=== PATIENT | female | born 1990 | race Caucasian/White ===

== ENCOUNTER 2016-11-03 11:12 | Emergency (ER) | payer MEDICAID ==
[2016-11-03 11:31] VITALS: RESP 14
--- NOTE | 2016-11-03 12:23 | EDPHY ---
H & P Stated Complaint: Peg tube non functional Time Seen by Provider: 11/03/16 11:21 HPI/ROS: CHIEF COMPLAINT: Malfunction of PEG tube HISTORY OF PRESENT ILLNESS: The patient is sent to the emergency department because her PEG tube is leaking. The patient is nonverbal secondary to her underlying neurologic condition. By report there is no history of vomiting, fever or abnormal vital signs. The patient is unable to provide additional history secondary to her chronic state. REVIEW OF SYSTEMS: A comprehensive 10 point review of systems is otherwise negative aside from elements mentioned in the history of present illness. Source: EMS, Old records - Personal History Current Tetanus/Diphtheria Vaccine: Yes Current Tetanus Diphtheria and Acellular Pertussis (TDAP): Yes - Medical/Surgical History Hx Asthma: No Hx Chronic Respiratory Disease: No Hx Diabetes: No Hx Cardiac Disease: No Hx Renal Disease: No Hx Cirrhosis: No Hx Alcoholism: No Hx HIV/AIDS: No Hx Splenectomy or Spleen Trauma: No Other PMH: bradycardia, retinitis pigmentosa, epilepsy with progressive neurodegenerative disorder, failure to thrive, blind (sees shadows only), anorexia with severe malnutrition and PEG tube, closed fx pelvis, severe depression without psychotic features - Social History Smoking Status: Never smoked - Physical Exam Exam: General Appearance: Deconditioned female, no acute distress Eyes: Pupils equal and round no pallor or injection ENT, Mouth: Mucous membranes moist Respiratory: There are no retractions, lungs are clear to auscultation Cardiovascular: Regular rate and rhythm Gastrointestinal: Abdomen is soft and nontender, no masses, bowel sounds normal , leaking PEG tube noted Neurological: Chronic weakness secondary to her neurologic condition Skin: Warm and dry, no rashes Musculoskeletal: Neck is supple nontender Extremities: symmetrical, full range of motion Constitutional: Initial Vital Signs Temperature (C) 36.6 C 11/03/16 11:23 Heart Rate 56 L 11/03/16 11:23 Respiratory Rate 14 11/03/16 11:23 Blood Pressure 101/49 L 11/03/16 11:23 O2 Sat (%) 95 11/03/16 11:23 O2 Delivery Mode Room Air Allergies/Adverse Reactions: lorazepam Allergy (Verified 11/03/16 11:22) Other-Enter Comments cantaloupe Allergy (Uncoded 11/03/16 11:22) Home Medications: Medication Instructions Recorded Bisacodyl [Dulcolax] 10 mg RC DAILY PRN 12/09/14 Magnesium Hydroxide [Milk of 30 ml TUBE DAILY PRN 06/17/14 Magnesia (*)] Sennosides/Docusate Sodium 2 tab TUBE BID 06/17/14 [Jadyn-Colace Tablet] Divalproex [Depakote Sprinkle 125 625 mg PO BID 09/10/14 MG (*)] Calcium Carbonate [Tums 500MG (*)] 500 mg PO BID 11/19/15 FLUoxetine [Prozac 10 MG (*)] 20 mg TUBE DAILY 11/19/15 Midazolam HCl/Pf [Midazolam 5 2 ml IM ONCE PRN 11/19/15 mg/ml Carpuject] Pregabalin [LYRICA] 100 mg TUBE BID 11/19/15 hydrOXYzine HCL 10 mg PO Q8 PRN 11/19/15 lamoTRIgine [Lamictal] 200 mg TUBE BID 11/19/15 Acetaminophen [Tylenol ES 500 mg 1,000 mg PO Q6 PRN 02/05/16 (*)] Lipase/Protease/Amylase [Creon 12 1 cap TUBE TIDMEAL 02/05/16 (*)] levOCARNitine [Biocarnitine Sf] 2 ml TUBE BID 02/05/16 Ergocalciferol [Vitamin D2 (*)] 50,000 unit PO SA@06/05/16 Herbals/Supplements -Info Only 1 ea PO DAILY 06/05/16 OLANZapine [Zyprexa] 15 mg PO HS 06/05/16 Sulfamethox/Tmp 800/160 mg 1 tab PO BID #14 tab 06/07/16 [Bactrim Ds] Medical Decision Making ED Course/Re-evaluation: Procedure Peg tube replacement Indication: Peg tube malfunction I replace the patient's 20 Cam[place]onian PEG tube with a brand new 20 Cam[place]onian PEG tube without complication. I was able to easily aspirate gastric contents following the procedure. Patient tolerated the procedure well. She will be discharged back to her residential facility. Departure - Departure Disposition: Home, Routine, Self-Care Clinical Impression: PEG tube malfunction Condition: Good Instructions: How to Use and Care for Your PEG Tube (ED) Additional Instructions: 1. Return to the emergency department for any malfunction of your PEG tube. Referrals: GAUTAM CAMACHO [Primary Care Provider] - As per Instructions
[2016-11-03 12:53] VITALS: BP 109/68; PULSE 74; TEMP 98.4; O2SAT 94
== END 2016-11-03 12:49 | disposition home or self-care (01) ==
LOC: EDUNIT#
DX: K94.23 Gastrostomy malfunction (principal)

== ENCOUNTER 2017-01-02 19:19 | Inpatient (IN) | payer MEDICAID ==
[2017-01-02] MEDS ORDERED: NS 1,000 ML IV ONE ×3 (19:41→22:40)
[2017-01-02] MEDS ORDERED: ACETAMINOPHEN 160 MG/5 ML UDCUP TUBE ONE (19:46)
[2017-01-02 19:54] LABS: % IMMATURE GRANULYOCYTES 1.1 % (0.0-1.1); ABSOLUTE IMMATURE GRANULOCYTES 0.13 10^3/uL (0.00-0.10); ADD DIFF? NO; ADD MORPH? NO; ADD SCAN? NO; ATYPICAL LYMPHOCYTE FLAG 0 (0-99); FRAGMENT RBC FLAG 0 (0-99); HEMATOCRIT 45.1 % (38.0-47.0); HEMOGLOBIN 14.8 g/dL (12.6-16.3); LEFT SHIFT FLG 40 (0-99); LIPEMIA HEMOLYSIS FLAG 80 (0-99); MEAN CELL HEMOGLOBIN 30.6 pg (27.9-34.1); MEAN CELL HEMOGLOBIN CONCENTR. 32.8 g/dL (32.4-36.7); MEAN CELL VOLUME 93.4 fL (81.5-99.8); PLATELET CLUMPS FLAG 20 (0-99); PLATELET COUNT 159 10^3/uL (150-400); RED BLOOD CELL COUNT 4.83 10^6/uL (4.18-5.33); RED CELL DISTRIBUTION WIDTH 12.9 % (11.5-15.2)
[2017-01-02 19:59] LABS: ANION GAP 12 mEq/L (8-16); BILIRUBIN,TOTAL 0.7 mg/dL (0.1-1.4); CALCIUM 9.6 mg/dL (8.5-10.4); CARBON DIOXIDE 20 mEq/l (22-31); CHLORIDE 104 mEq/L (97-110); CREATININE 0.6 mg/dL (0.6-1.0); GLOMERULAR FILTRATION RATE > 60; GLUCOSE 101 mg/dL (70-100); POTASSIUM 4.5 mEq/L (3.5-5.2); SODIUM 136 mEq/L (134-144)
--- NOTE | 2017-01-02 20:17 | EDPHY ---
H & P Time Seen by Provider: 01/02/17 19:45 HPI/ROS: CHIEF COMPLAINT: Pneumonia Limitations: pt is nonverbal; hx through EMS and senior living staff HISTORY OF PRESENT ILLNESS: This patient is a 26 year old female with history of neurodegenerative disorder and seizure disorder arriving via EMS from [facility] presenting with pneumonia. She was diagnosed with pneumonia 12/15/16 and was started on Levaquin. She has finished her course of Levaquin but continues to have a cough and fever. She also had 2 generalized seizures today and has been taking her seizure medication regularly. REVIEW OF SYSTEMS: Unable to obtain Past Medical/Surgical History: Chronic neurodegenerative disorder Blind Seizure disorder Past medical records reviewed including ED visit 06/14/16 for recurrent seizures. Social History: Lives at [facility]. Smoking Status: Never smoked Physical Exam: General Appearance: Unresponsive to painful stimuli. Eyes: Closed. ENT, Mouth: Mucous membranes dry Neck: Normal inspection Respiratory: Lungs are clear to auscultation Cardiovascular: Regular rate and rhythm Gastrointestinal: Abdomen is soft Neurological: Unresponsive to painful stimuli. Flaccid extremities, no spontaneous movement. Skin: Warm and dry, no rash Extremities: No pedal edema Psychiatric: Unable to assess. Constitutional: Initial Vital Signs Temperature (C) 37.4 C 01/02/17 19:20 Heart Rate 72 01/02/17 19:20 Respiratory Rate 20 01/02/17 19:20 Blood Pressure 97/67 L 01/02/17 19:20 O2 Sat (%) 93 01/02/17 19:20 O2 Delivery Mode Nasal Cannula O2 (L/minute) 2 Allergies/Adverse Reactions: lorazepam Allergy (Verified 01/02/17 19:31) Other-Enter Comments cantaloupe Allergy (Uncoded 01/02/17 19:31) Home Medications: Medication Instructions Recorded Acetaminophen [Tylenol ES 500 mg 1,000 mg PO Q6 PRN 01/02/17 (*)] Calcium Carbonate [Tums 500MG (*)] 500 mg PO BID 01/02/17 Cholecalciferol Vit D3 [Vitamin D3 50,000 unit PO SA 01/02/17 (*)] Divalproex [Depakote Sprinkle 125 625 mg PO BID 01/02/17 MG (*)] FLUoxetine [Prozac 10 MG (*)] 10 mg PO DAILY 01/02/17 Herbals/Supplements -Info Only 1 ea PO DAILY 01/02/17 Ipratropium/Albuterol [Duoneb (*)] 3 ml IH QID PRN 01/02/17 Lipase/Protease/Amylase [CREON DR 1 each PO TID 01/02/17 12,000 UNITS CAPSULE] Midazolam HCl/Pf [Midazolam HCl 5 1 ml EACHNARE DAILY PRN 01/02/17 mg/ml Vial] OLANZapine [Zyprexa] 10 mg PO HS 01/02/17 Oxymetazoline HCl [Nasal Ambler] 2 ml EACHNARE QID 01/02/17 Pregabalin [LYRICA] 100 mg TUBE BID 01/02/17 Sennosides/Docusate Sodium 2 each PO BID 01/02/17 [Senna-Docusate Sodium Tablet] Zonisamide [Zonegran 100MG (*)] 100 mg PO BID 01/02/17 guaiFENesin [Mucinex 600 MG (*)] 600 mg PO Q12H PRN 01/02/17 lamoTRIgine [Lamictal] 200 mg PO BID 01/02/17 levOCARNitine (WITH SUGAR) 2 ml TUBE BID 01/02/17 [Levocarnitine 100 mg/ml Soln] Medical Decision Making - Diagnostics Imaging: I viewed and interpreted images myself ED Course/Re-evaluation: This patient presents with persistent pneumonia after a 10 day course of Levaquin. She does not meet SIRS criteria. However her lactate was elevated 3.6, so IV normal saline 2 L given. A repeat lactate was 3.8. IVF given, 2 liters. Tylenol 650 mg per PEG tube given. Chest x-ray reveals left lower lobe pneumonia. Cefepime 2 g IV and vancomycin 1 g IV given. The hospitalist service was consulted for admission. Differential Diagnosis: Differential diagnosis includes does not limited to severe sepsis, empyema, hypoxia, severe dehydration, UTI. - Data Points Laboratory Results: Laboratory Results 01/02/17 19:15 01/02/17 19:15 Microbiology Results: MICROBIOLOGY 01/02/17 19:15 Blood Blood Culture - Preliminary 01/02/17 19:15 Blood Blood Culture - Preliminary Medications Given: Discontinued Medications Acetaminophen (Tylenol 160mg/5ml Oral Liquid) 650 mg TUBE EDNOW ONE Stop: 01/02/17 19:47 Last Admin: 01/02/17 20:03 Dose: 650 mg Divalproex Sodium (Depakote Sprinkle) 625 mg PO BID BABAK Stop: 07/01/17 22:59 Last Admin: 01/03/17 02:07 Dose: Not Given Sodium Chloride (Ns) 1,000 mls @ 0 mls/hr IV ONCE ONE; Wide Open PRN Reason: Protocol Stop: 01/02/17 19:42 Last Admin: 01/02/17 19:41 Dose: 1,000 mls Sodium Chloride (Ns) 1,000 mls @ 0 mls/hr IV ONCE ONE; Wide Open PRN Reason: Protocol Stop: 01/02/17 20:40 Last Admin: 01/02/17 21:15 Dose: 1,000 mls Cefepime HCl 2 gm/ Dextrose 100 mls @ 200 mls/hr IV EDNOW ONE PRN Reason: Protocol Stop: 01/02/17 21:13 Last Admin: 01/02/17 21:19 Dose: 100 mls Vancomycin/Sodium Chloride (Vancomycin 1 Gm (Premix)) 250 mls @ 250 mls/hr IV EDNOW ONE PRN Reason: Protocol Stop: 01/02/17 21:43 Last Admin: 01/02/17 22:14 Dose: 250 mls Sodium Chloride (Ns) 1,000 mls @ 0 mls/hr IV ONCE ONE PRN Reason: Wide Open Stop: 01/02/17 22:41 Last Admin: 01/02/17 23:15 Dose: 1,000 mls Meropenem 1 gm/ Sodium (Chloride) 120 mls @ 120 mls/hr IV Q8HRS BABAK PRN Reason: Protocol Stop: 02/02/17 00:29 Last Admin: 01/03/17 00:32 Dose: 120 mls Lamotrigine (Lamictal) 200 mg PO BID BABAK Stop: 07/01/17 22:59 Last Admin: 01/03/17 02:07 Dose: Not Given Olanzapine (Olanzapine) 10 mg PO HS BABAK Stop: 07/01/17 22:57 Last Admin: 01/03/17 02:07 Dose: Not Given Departure - Departure Disposition: [facility] Clinical Impression: Pneumonia Qualifiers: Pneumonia type: due to unspecified organism Laterality: right Lung location: unspecified part of lung Qualified Code(s): J18.9 - Pneumonia, unspecified organism Condition: Fair Report Scribed for: Debra King Report Scribed by: Yuli Allison Date of Report: 01/02/17 Time of Report: 20:17 Physician Review and Approval Statement: 01/02/17 20:32 Portions of this note were transcribed by a medical equipment repair technician. I personally performed a history, physical exam, medical decision making, and confirmed accuracy of information the transcribed note.
[2017-01-02] MEDS ORDERED: CEFEPIME HCL 2 GM in D5W 100 ML IV ONE (20:44)
[2017-01-02] MEDS ORDERED: VANCOMYCIN HCL/NORMAL SALINE 250 ML IV ONE (20:44)
[2017-01-02 20:59] LABS: INR 1.08 (0.83-1.16); PROTIME(PATIENT) 13.9 SEC (12.0-15.0)
[2017-01-02 21:00] LABS: APTT 28.6 SEC (23.0-38.0)
[2017-01-02 22:09] LABS: LACGHOST ORDER
[2017-01-02] MEDS ORDERED: ACETAMINOPHEN 325 MG TAB PO PRN (22:40)
[2017-01-02] MEDS ORDERED: ONDANSETRON DISINTEGRATING 4 MG TAB PO PRN (22:40)
[2017-01-02] MEDS ORDERED: ONDANSETRON 4 MG/2 ML VIAL IVP PRN (22:40)
[2017-01-02] MEDS ORDERED: ACETAMINOPHEN 325 MG TAB TUBE PRN (22:40)
[2017-01-02] MEDS ORDERED: IPRATROPIUM/ALBUTEROL 3 ML DEYVIAL IH PRN (22:56)
[2017-01-02] MEDS ORDERED: MIDAZOLAM 10 MG/2 ML VIAL NASAL PRN (22:56)
[2017-01-02] MEDS ORDERED: guaiFENesin 600 MG TAB.ER PO PRN (22:56)
[2017-01-02] MEDS ORDERED: OLANZapine 10 MG TAB PO SCH (22:58)
[2017-01-02] MEDS ORDERED: lamoTRIgine 100 MG TAB PO SCH (23:00)
[2017-01-02] MEDS ORDERED: DIVALPROEX NA 125 MG CAP.SPRINKLE PO SCH (23:00)
[2017-01-02] MEDS ORDERED: ZONISAMIDE 100 MG CAP PO SCH (23:00)
[2017-01-03] MEDS ORDERED: DIAZEPAM 2.5 MG PR PRN
[2017-01-03 00:20] LABS: ALBUMIN 2.6 g/dL (3.5-5.0); BILIRUBIN,TOTAL 0.5 mg/dL (0.1-1.4); BILIRUBIN-CONJUGATED 0.3 mg/dL (0.0-0.5); BILIRUBIN-UNCONJUGATED 0.2 mg/dL (0.0-1.1); TOTAL PROTEIN 5.1 g/dL (6.3-8.2)
--- NOTE | 2017-01-03 00:26 | CPEKG ---
Heart Rate: 49 RR Interval: 1224 P-R Interval: 172 QRSD Interval: 96 QT Interval: 468 QTC Interval: 423 P [place]: 34 QRS [place]: 38 T Wave [place]: 183 EKG Severity - ABNORMAL ECG - EKG Impression: SINUS BRADYCARDIA EKG Impression: ABNORMAL T, CONSIDER ISCHEMIA, ANT-LAT LEADS Electronically Signed By: Cornel Moreira 03-Jan-2017 16:18:32
[2017-01-03] MEDS ORDERED: MEROPENEM 1 GM in NS 100 ML IV SCH (00:30)
[2017-01-03] MEDS: NS 1,000 ML IV SCH (00:32)
--- NOTE | 2017-01-03 01:00 | GHP ---
[f rep st] HISTORY AND PHYSICAL DATE OF ADMISSION: 01/02/2017 CHIEF COMPLAINT: Cough, fever, and seizure. HISTORY OF PRESENT ILLNESS: The patient is a 26-year-old female with a history of a neuro degenerative disorder with associated seizure disorder, who is flaccid and nonverbal at baseline, presents to the emergency department with ongoing cough, fever, and 2 recurrent seizures today. She was diagnosed with pneumonia on December 15 and has completed a 10 day course of Levaquin. Per the report of her correction facility, she continues to have cough and fevers. She then developed 2 tonic colonic seizures today despite regular administration of her 3 antiepileptic medications. She was treated with her intranasal versed preparation. She apparently tolerates Ativan, but per her mother she has rebound seizures, and thus this is not her preferred medication for management of seizures. Since her administration of intranasal versed today , she has been more obtunded, and there is concern she is not safe to swallow. Her mom is not sure if she has any history of aspiration. The patient herself is unable to give a history due to her baseline nonverbal status. She does have a PEG tube, but also takes oral intake per her mom. Her mom is not sure if she has a modified diet. History is very limited as her mother really does not know any details of her recent history. In the emergency department, her lactate was elevated, and her chest x-ray revealed persistent / worsening bibasilar infiltrates. She was given a dose of cefepime and vancomycin, and is admitted to the hospital for further management. PAST MEDICAL HISTORY: 1. 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 She is followed by Neurology at [facility]. 2. Intractable seizures requiring 4 antiepileptic medications. 3. Retinitis pigmentosa with resulting blindness. 4. Dysphagia status post PEG tube. 5. History of recurrent pneumonia. PAST SURGICAL HISTORY: PEG placement. FAMILY HISTORY: Reviewed and non-pertinent. SOCIAL HISTORY: The patient is a lifetime nonsmoker. There has been no reported alcohol or drug use. She resides at [facility]. Her mother is present at the bedside, although is not really informed about her recent status. REVIEW OF SYSTEMS: A 10-point review of systems was performed and is negative except as per HPI. OBJECTIVE: VITAL SIGNS: Temperature is 37.2, blood pressure 93/52, heart rate 52, respiratory rate 16, she is 95% on 3 L. GENERAL: The patient is obtunded and arousable only to painful stimulus. HEENT: Head is atraumatic, normocephalic. Pupils equal, round, and reactive to light. Oropharynx is clear. Mucous membranes are moist. NECK: Supple. There is no JVD. HEART: Regular rate and rhythm without murmur. LUNGS: Reveal diminished breath sounds bilaterally due to minimal respiratory effort. ABDOMEN: Soft, nondistended, nontender with normoactive bowel sounds. EXTREMITIES: There is trace bilateral lower extremity edema. NEUROLOGIC: The patient's baseline is relatively flaccid. She is currently obtunded possibly postictal versus sedation from Versed. Unable to assess strength and sensation due to her obtunded status though she does withdraw to painful stimuli. LABORATORY DATA: CBC reveals a white count of 11.6, hemoglobin 14, platelets are normal. She has 82% neutrophils. INR is 1.08. Lactic acid is 3.6 and a repeat is 3.8. Basic metabolic panel is remarkable for a CO2 of 20, glucose of 101. A Procalcitonin, beta HCG, lamotrigine, Depakote, and LFTs are pending. Chest x-ray is personally reviewed and interpreted, shows increase in bilateral pulmonary opacities left greater than right with very poor inspiratory effort and decreased lung volumes. ASSESSMENT/PLAN: The patient is a 26-year-old female with history of neuro degenerative disease and associated seizure disorder, who was recently treated for pneumonia and returns to the emergency department with ongoing cough, fevers , and seizures today. 1. Pneumonia. Per the SNF history, she has ongoing cough and fevers with persistent / worsening infiltrates on her chest x-ray. She does meet criteria for severe sepsis with her elevated lactate. Her lactate could be elevated from decreased tissue perfusion in the setting of seizures. In addition, she is a bit hypotensive at 93/52 currently. This could also be a result of her intranasal versed that she received today for her seizure activity. Will perform a chest CT for better evaluation of her pulmonary infiltrates. She is at risk for aspiration and with ongoing cough and fevers reported, will broaden her coverage to meropenem to cover for aspiration, as well as Pseudomonas given her recent antibiotic use and the fact that she resides at a nursing facility. Blood cultures are pending. Sputum culture is ordered. PCT is sent. Will also request speech therapy consult for further evaluation of her swallow function. Dietary consult is also requested to assist with her tube feeds. She is kept n.p.o. at this time due to concern for aspiration. 2. Seizures secondary to a chronic neuro degenerative disease. She is followed by Neurology at the [place]. Will continue her Depakote, Lamictal, and Zonegran. Hopefully, these can be given per her PEG tube. She currently appears postictal if not over sedated from her intranasal Versed that she received after 2 witnessed tonic-clonic seizures today. I will send a Lamictal and Depakote level. Per her mother, she has rebound seizures with Ativan. If she does have recurrent seizures here, will use IV Valium vs a Keppra load. Will request Neurology consult for the morning. 3. Acute on chronic encephalopathy. As above, I suspect either a postictal versus over medicated state. Neurology consult is requested as above. Continue antiepileptic medications. 4. Acute hypoxemic respiratory failure. She is currently requiring 3 L of oxygen by nasal cannula. A chest CT is ordered as above. Will wean oxygen as able and are currently treating covering for aspiration pneumonia. 5. Dysphagia status post PEG tube. 6. Metabolic acidosis. This is likely a lactic acidosis. As above, it is unclear if her lactate is elevated in the setting of sepsis versus tissue hyperperfusion after seizures, especially with her low blood pressure after receiving intranasal midazolam. 7. Deep venous thrombosis prophylaxis. Lovenox. The patient is high risk. Will start Lovenox. 8. Code status. I did discuss code status with the patient's mother's. She wishes for her to be full code. 9. Disposition. The patient is admitted to the hospital as inpatient status and will likely require greater than 48 hours hospitalization for ongoing management of her seizure disorder and possible sepsis related to pneumonia. /[id number]/MODL MTDD
[2017-01-03 01:08] LABS: PROCALCITONIN 0.05 ng/mL (0.02-0.10)
[2017-01-03] MEDS ORDERED: guaiFENesin 200 MG/10 ML UDL PO PRN (01:34)
[2017-01-03] MEDS ORDERED: DIAZEPAM 10 MG/2 ML SYR IVP PRN (01:34)
[2017-01-03] MEDS ORDERED: guaiFENesin 200 MG/10 ML UDL TUBE PRN (01:34)
[2017-01-03] MEDS: VALPROIC ACID 250 MG/5 ML UDCUP TUBE SCH ×3 (02:30→21:52)
[2017-01-03] MEDS: OLANZapine 10 MG TAB TUBE SCH ×2 (02:31→21:44)
[2017-01-03] MEDS: lamoTRIgine 100 MG TAB TUBE SCH ×3 (02:31→21:43)
[2017-01-03] MEDS: ZONISAMIDE 100 MG CAP TUBE SCH ×4 (02:32→21:43)
[2017-01-03 04:42] LABS: % IMMATURE GRANULYOCYTES 0.7 % (0.0-1.1); ABSOLUTE IMMATURE GRANULOCYTES 0.05 10^3/uL (0.00-0.10); ADD DIFF? NO; ADD MORPH? NO; ADD SCAN? NO; ATYPICAL LYMPHOCYTE FLAG 10 (0-99); FRAGMENT RBC FLAG 0 (0-99); HEMATOCRIT 39.3 % (38.0-47.0); HEMOGLOBIN 12.3 g/dL (12.6-16.3); LEFT SHIFT FLG 10 (0-99); LIPEMIA HEMOLYSIS FLAG 80 (0-99); MEAN CELL HEMOGLOBIN 29.9 pg (27.9-34.1); MEAN CELL HEMOGLOBIN CONCENTR. 31.3 g/dL (32.4-36.7); MEAN CELL VOLUME 95.6 fL (81.5-99.8); PLATELET CLUMPS FLAG 10 (0-99); PLATELET COUNT 121 10^3/uL (150-400); RED BLOOD CELL COUNT 4.11 10^6/uL (4.18-5.33); RED CELL DISTRIBUTION WIDTH 13.2 % (11.5-15.2)
[2017-01-03 04:57] LABS: ANION GAP 9 mEq/L (8-16); CALCIUM 8.2 mg/dL (8.5-10.4); CARBON DIOXIDE 19 mEq/l (22-31); CHLORIDE 114 mEq/L (97-110); CREATININE 0.5 mg/dL (0.6-1.0); GLOMERULAR FILTRATION RATE > 60; GLUCOSE 80 mg/dL (70-100); POTASSIUM 3.6 mEq/L (3.5-5.2); SODIUM 142 mEq/L (134-144)
--- NOTE | 2017-01-03 04:58 | HOSPPROG ---
Hospitalist Progress Note Assessment/Plan: Follow up to H&P: Procalcitonin returned at <0.05 making PNA and bacterial infection highly unlikely. She completed 10 d course of Levaquin prior to admission for PNA. CXR shows persistent / worsening infiltrates, though this is a poor film with hypo-expanded lung angela with possible atelectasis. Her elevated lactate could be explained by poor tissue perfusion in setting of seizures. She is afebrile here. Will stop atbx and observe. Objective: Vital Signs Temp Pulse Resp BP Pulse Ox 37.2 C 50 L 16 111/59 L 97 01/02/17 22:33 01/03/17 02:45 01/03/17 00:21 01/03/17 02:45 01/03/17 02:45 Laboratory Results 01/03/17 04:28 01/01/17 01/02/17 01/03/17 05:59 05:59 05:59 Intake Total 1700 Balance 1700 PT 13.9 SEC (12.0-15.0) 01/02/17 20:44 INR 1.08 (0.83-1.16) 01/02/17 20:44 ICD10 Worksheet Patient Problems: Problems Problem Status Onset Ricco's disease Acute Bradycardia Acute Bradycardia, sinus Acute Encephalopathy Acute Lethargy Acute Palliative care encounter Acute Pneumonia Acute Seizure Acute Seizure disorder Acute Sepsis Acute
[2017-01-03] MEDS ORDERED: SENNOSIDES/DOCUSATE SODIUM TAB PO SCH (09:00)
[2017-01-03] MEDS: SENNOSIDES 17.6 MG/10 ML UDL TUBE SCH ×2 (09:49→21:55)
[2017-01-03] MEDS: PREGABALIN 100 MG CAP TUBE SCH ×2 (09:49→21:43)
[2017-01-03] MEDS: ENOXAPARIN 40 MG/0.4 ML SYR SC SCH (09:50)
[2017-01-03] MEDS: FLUoxetine 10 MG CAP TUBE SCH (09:50)
[2017-01-03] MEDS: CREON 12 CAP TUBE SCH ×3 (11:49→21:43)
[2017-01-03] MEDS: [UNRECOGNIZED DRUG - OTHER] TUBE SCH ×2 (12:06→22:52)
[2017-01-03] MEDS: LEVOCARNITINE TUBE SCH ×2 (12:06→22:52)
--- NOTE | 2017-01-03 14:38 | PDPCPN ---
Palliative Care Progress Note Assessment/Plan: Referring provider: Dr Humphreys Reason for consult: Complex medical decision making Symptom control HPI: Stella Alvarez is a 26 yo female with PMH progressive neurological disorder, dysphagia s/p PEG tube, and frequent seizures. Known to our service from previous hospitalizations. At baseline she is total care and dependent on ADLs. Lives at [facility] and follows with neurologist Dr Sandie campuzano at the . Admitted to the hospital for uncontrolled seizures and possible asp PNA. Treated for PNA as outpt on admission CXR with possible PNA but work up negative and continued atelectasis on Xray. Given versed at for seizures and continues to be lethargic and post ictal. Palliative care consulted for complex medical decision making. Met with mother Jeannine and her outside of the room. Jeannine shared how she feels her care at [facility] is impacting her health. She feels that there is still more to treat her with and see if she can improve. She did acknowledge she was told Stella is at the end of life but also that she feels she has a lot more years left to live. She feels at she does not get all the care she needs which is creating her multiple hospitalizations. Her goals are to have her moved to a facility closer to her home, research [facility] modalities and continue with support nursing care. Had a discussion regarding code status and she would like her to remain full code at this time. She feels if she is much worse and near end of life then she would reconsider. We talked about hospice care and allowing for natural course of life but this is not in line with their goals. Spent > 60 minutes in direct face to face contact, counseling, and coordination of care. Assessment: Physical: - Pain: appears comfortable - tylenol PRN - Dysphagia: - speech involved - PEG tube Emotional/psychological: Advanced Care Planning: Is patient decisional?: No Code Status: Full- readdressed and Jeannine is not ready to "throw in the towel " POA: Mother Jeannine is MDPOA Plan: return to [facility] when medically ready. Jeannine is hoping to find another facility that might serve Stella's needs. CM working with [facility] Subjective: non verbal Objective: Social History: Mother Jeannine lives in [place]. Grandparents live in [facility]. Has 1 son Chad who is 9 years old. Medication list reviewed ROS: unable to obtain Functional assessment: PPS: 30% Functional status: dependent on ADLs, IADLs Vital Signs Temp Pulse Resp BP Pulse Ox 36.6 C 52 L 18 80/44 L 96 01/03/17 11:00 01/03/17 11:00 01/03/17 11:00 01/03/17 11:00 01/03/17 11:00 Laboratory Results 01/03/17 04:28 01/03/17 04:28 01/02/17 01/03/17 01/04/17 05:59 05:59 05:59 Intake Total 3314 Balance 3314 PT 13.9 SEC (12.0-15.0) 01/02/17 20:44 INR 1.08 (0.83-1.16) 01/02/17 20:44 Physical Exam - Physical Exam General Appearance: other (sleeping) Respiratory: No respiratory distress, No accessory muscle use Skin: normal color, warm/dry Extremities: No pedal edema Neuro/Psych: disoriented to person, disoriented to place, disoriented to time, other (non verbal) ICD10 Worksheet Patient Problems: Problems Problem Status Onset Ricco's disease Acute Bradycardia Acute Bradycardia, sinus Acute Encephalopathy Acute Lethargy Acute Palliative care encounter Acute Pneumonia Acute Seizure Acute Seizure disorder Acute Sepsis Acute
--- NOTE | 2017-01-03 14:47 | HOSPPROG ---
Hospitalist Progress Note Assessment/Plan: * Intractable seizure disorder - breaking through 4 drugs -d/w Dr. 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 She denies that patient has a neurodegenerative disorder and seizure disorder. She denies any knowledge of previously been told patient has poor prognosis. There are concerns regarding his fitness to be decision maker for the patient. Ethics consulted. COR status - she remains full cor, but DNR would be more appropriate if she continues to eat despite aspiration risk. Await her post-ictal state to improve, then eval with ST to assess safety of swallow when awake. Subjective: Still very sedated and minimally responsive. Initially started on abx but procalcitonin is normal so pneumonia felt to be ruled out and antibiotics stopped. Objective: Vital Signs Temp Pulse Resp BP Pulse Ox 36.6 C 52 L 18 80/44 L 96 01/03/17 11:00 01/03/17 11:00 01/03/17 11:00 01/03/17 11:00 01/03/17 11:00 Laboratory Results 01/03/17 04:28 01/03/17 04:28 01/02/17 01/03/17 01/04/17 05:59 05:59 05:59 Intake Total 3314 Balance 3314 PT 13.9 SEC (12.0-15.0) 01/02/17 20:44 INR 1.08 (0.83-1.16) 01/02/17 20:44 CXR viewed, my personal interpretation is - very poor inspiration and poor lung volumes. possible infiltrate vs. atelectasis - Physical Exam Constitutional: no apparent distress, appears nourished, not in pain Cardiovascular: regular rate and rhythym, no murmur, rub, or gallop Respiratory: no respiratory distress, no rales or rhonchi, clear to auscultation Gastrointestinal: normoactive bowel sounds, soft, non-tender abdomen, no palpable masses Skin: no rashes or abrasions, no fluctuance, no induration Neurologic: No AAOx3 Psychiatric: encephalopathic, flat affect, poor insight, poor judgement, poor memory, other (mostly unresponsive) ICD10 Worksheet Patient Problems: Problems Problem Status Onset Ricco's disease Acute Bradycardia Acute Bradycardia, sinus Acute Encephalopathy Acute Lethargy Acute Palliative care encounter Acute Pneumonia Acute Seizure Acute Seizure disorder Acute Sepsis Acute
--- NOTE | 2017-01-03 15:23 | PDCONSULT ---
Training Analyst Note: HOSPITAL NEUROLOGY CONSULT REQUESTING: Maggie Humphreys DO REASON: seizure HPI: This is a 26 year old woman who is known to me from prior hospitalizations. 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 She has drug resistant epilepsy and is being managed by [facility] epilepsy experts. She is also blind from retinitis pigmentosum. She has severe bradycardia. She is immobile/bedbound/chairbound and a resident at [facility]. History is obtained from discussion with other providers on the case, as well as records review. Parents are at bedside. Patient was sent via EMS for 2 reported generalized convulsions. She had been treated for aspiration pneumonia in the days prior to admission. [facility] provided intranasal midazolam for her seizures. She is reported to be compliant with her now 4 drug anti-seizure regimen. ROS: As per the HPI, otherwise a complete 12 point ROS was performed and is negative ALLERGIES AND MEDS: As recorded in the EMR - reviewed and reconciled PFSH: As per the intake H&P by Dr. Humphreys from yesterday EXAM: VS reviewed in EMR GEN: laying in bed with eyes closed MS: eyes closed, barely open to nox stim, no verbal output except for some grunting with noxious stimulation, does not follow commands CN: pupils 5mm round and variably reactive. Unable to perform fundoscopy. Primary gaze centered. No spontaneous eye movements. No blink to threat. Face symmetric. Grunts to nox stim of the face. Won't open mouth. MOTOR: normal bulk, flaccid tone. Only trace spontaneous movements of the extremities that are not goal directed SENSORY: withdraws to nox stim of the extremities REFLEX: plantars equivocal, no clonus, DTRs 3-/4 COORD: unable to assess GAIT: unable to assess DATA REVIEW: Labs reviewed in EMR PERSONALLY INTERPRETED RESULTS AND DATA: None IMPRESSION AND RECOMMENDATIONS: // DRUG RESISTANT EPILEPSY WITH BREAKTHROUGH SEIZURES // DEGENERATIVE ENCEPHALOPATHY Patient presents with another episode of breakthrough seizure. Question if she had aspiration prior to admission - CXR shows atelectasis without consolidation or infiltrate. The main focus of today's consultation was spent in discussion with other providers and family. 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 I was able to review a genetics consultation from [facility] in [facility]. It appears Ricco's disease was ruled out, however, unknown what kind of degenerative condition she is experiencing. She is followed by Dr. Gaby Fagan at [facility] Epilepsy center. Parents seem to have a somewhat incongruent view of Stella's condition. Prior records indicate she is bedbound and relatively nonverbal. Mom states the patient is mobile on some occasions and can converse normally on some days. I don't see any indication of this in the record, just quite the opposite. Discussed how she has a degenerative condition with refractory seizures (has been on a multitude of drugs). Still having breakthrough, which is not unexpected. Discussed the role of hospitalization, and if recurrent hospitalization for breakthrough seizure is really providing any benefit. Also discussed quality of life issues - patient is blind, requires PEG for nutrition , is bedbound and nonverbal. Discussed how her condition is degenerative and that even with a diagnosis there is unlikely to be any other intervention, other than supportive measures she currently receives. Palliative care has consulted again. I advise getting and ethics consultation to review the case with specific regard to repeated hospitalizations. Would continue her current antiseizure drug regimen. There is no evidence of any active infectious/metabolic issue. She should be following with her providers at [facility]. No further recommendations. 65 mins in direct patient care activities on the floor, with more than 50% spent in counseling and coordination of care. Case discussed with speech therapy and hospitalist.
[2017-01-03 16:26] LABS: COLOR YELLOW; LEUKOCYTE ESTERASE,URINE NEGATIVE (NEGATIVE); NITRITE,URINE NEGATIVE (NEGATIVE)
[2017-01-03 16:30] LABS: BACTERIA TRACE /hpf (NONE SEEN); MUCUS TRACE /lpf (NONE-1+)
[2017-01-04] MEDS: NS 1,000 ML IV SCH (01:22)
[2017-01-04 05:04] LABS: % IMMATURE GRANULYOCYTES 0.5 % (0.0-1.1); ABSOLUTE IMMATURE GRANULOCYTES 0.02 10^3/uL (0.00-0.10); ADD DIFF? NO; ADD MORPH? NO; ADD SCAN? NO; ATYPICAL LYMPHOCYTE FLAG 0 (0-99); FRAGMENT RBC FLAG 0 (0-99); HEMATOCRIT 37.6 % (38.0-47.0); LEFT SHIFT FLG 0 (0-99); LIPEMIA HEMOLYSIS FLAG 80 (0-99); MEAN CELL HEMOGLOBIN 30.7 pg (27.9-34.1); MEAN CELL HEMOGLOBIN CONCENTR. 31.9 g/dL (32.4-36.7); MEAN CELL VOLUME 96.2 fL (81.5-99.8); PLATELET CLUMPS FLAG 0 (0-99); PLATELET COUNT 115 10^3/uL (150-400); RED BLOOD CELL COUNT 3.91 10^6/uL (4.18-5.33); RED CELL DISTRIBUTION WIDTH 13.1 % (11.5-15.2)
[2017-01-04 05:18] LABS: ANION GAP 6 mEq/L (8-16); CALCIUM 8.1 mg/dL (8.5-10.4); CARBON DIOXIDE 21 mEq/l (22-31); CHLORIDE 114 mEq/L (97-110); CREATININE 0.6 mg/dL (0.6-1.0); GLOMERULAR FILTRATION RATE > 60; GLUCOSE 69 mg/dL (70-100); POTASSIUM 3.7 mEq/L (3.5-5.2); SODIUM 141 mEq/L (134-144)
[2017-01-04] MEDS ORDERED: ALBUTEROL 3 ML DEYVIAL ONE (05:54)
[2017-01-04] MEDS: VALPROIC ACID 250 MG/5 ML UDCUP TUBE SCH (09:56)
[2017-01-04] MEDS: FLUoxetine 10 MG CAP TUBE SCH (09:57)
[2017-01-04] MEDS: SENNOSIDES 17.6 MG/10 ML UDL TUBE SCH (09:57)
[2017-01-04] MEDS: lamoTRIgine 100 MG TAB TUBE SCH (09:57)
[2017-01-04] MEDS: CREON 12 CAP TUBE SCH ×2 (09:57→16:23)
[2017-01-04] MEDS: ENOXAPARIN 40 MG/0.4 ML SYR SC SCH (09:58)
[2017-01-04] MEDS: ZONISAMIDE 100 MG CAP TUBE SCH (09:58)
[2017-01-04] MEDS: PREGABALIN 100 MG CAP TUBE SCH (09:59)
--- NOTE | 2017-01-04 10:36 | PDIAF ---
- Diagnosis Diagnosis: intractable seizures Code Status: Full Code - Medication Management Discharge Medications: Medications to Continue on Transfer Acetaminophen [Tylenol ES 500 mg (*)] 1,000 mg PO Q6 PRN 01/02/17 [Last Taken Unknown] Calcium Carbonate [Tums 500MG (*)] 500 mg PO BID 01/02/17 [Last Taken 01/02/17 2 DOSES] Cholecalciferol Vit D3 [Vitamin D3 (*)] 50,000 unit PO SA 01/02/17 [Last Taken 12/31/16] Divalproex [Depakote Sprinkle 125 MG (*)] 625 mg PO BID 01/02/17 [Last Taken 2 doses] FLUoxetine [Prozac 10 MG (*)] 10 mg PO DAILY 01/02/17 [Last Taken 01/02/17] Herbals/Supplements -Info Only 1 ea PO DAILY 01/02/17 [Last Taken Unknown] Ipratropium/Albuterol [Duoneb (*)] 3 ml IH QID PRN 01/02/17 [Last Taken 2 DOSES] Lipase/Protease/Amylase [CREON DR 12,000 UNITS CAPSULE] 1 each PO TID 01/02/17 [ Last Taken 01/02/17 3 DOSES] Midazolam HCl/Pf [Midazolam HCl 5 mg/ml Vial] 1 ml EACHNARE DAILY PRN 01/02/17 [ Last Taken Unknown] OLANZapine [Zyprexa] 10 mg PO HS 01/02/17 [Last Taken 01/01/17] Oxymetazoline HCl [Nasal [place]] 2 ml EACHNARE QID 01/02/17 [Last Taken 01/02/17 3 TIMES] Pregabalin [LYRICA] 100 mg TUBE BID 01/02/17 [Last Taken 01/02/17 am dose] Sennosides/Docusate Sodium [Senna-Docusate Sodium Tablet] 2 each PO BID [Last Taken 01/02/17 am dose] Zonisamide [Zonegran 100MG (*)] 100 mg PO BID 01/02/17 [Last Taken 01/02/17 AM DOSE] guaiFENesin [Mucinex 600 MG (*)] 600 mg PO Q12H PRN 01/02/17 [Last Taken ] lamoTRIgine [Lamictal] 200 mg PO BID 01/02/17 [Last Taken 01/02/17 am dose] levOCARNitine (WITH SUGAR) [Levocarnitine 1 G/10 ml Soln] 2 ml TUBE BID [Last Taken 01/02/17 am dose] Discharge Medications: Refer to the Discharge Home Medication list for PRN reason. - Orders Services needed: Speech Language Pathologist Diet Recommendation: other (NPO - tube feeds only until cleared by Speech Pathology) Diet Texture: No Oral Liquids, Oral Feeding with Speech Pathologist Only, Non Oral Meds Tube feeding: per dietary Additional: Intractable seizures - on max seizure medication - these will continue and become more frequent as her neurogenerative disorder progresses. Consider not sending back to hospital with every seizure. - Follow Up Care Current Providers and Referrals: Patient,NotPresent [Primary Care Provider] - As per Instructions
[2017-01-04] MEDS: [UNRECOGNIZED DRUG - OTHER] TUBE SCH (10:38)
[2017-01-04] MEDS: LEVOCARNITINE TUBE SCH (10:38)
[2017-01-04 15:33] VITALS: BP 78/48; PULSE 71; RESP 15; TEMP 98; O2SAT 96
--- NOTE | 2017-01-04 17:31 | GDS ---
[f rep st] DISCHARGE SUMMARY DISCHARGE DIAGNOSES: 1. Neurodegenerative disorder, not otherwise specified. Ricco's disease ruled out. 2. Intractable progressive seizures breaking through four drugs maximal therapy. 3. Metabolic encephalopathy due to postictal state. 4. Chronic dysphagia, with percutaneous endoscopic gastrostomy tube. 5. Retinitis pigmentosa blindness. HISTORY: The patient is an unfortunate 26-year-old female with a progressive neurodegenerative diso rder, for which she is bedbound, living in a prison, nonverbal, with a PEG tube. She has been seen at [facility], and her neurodegenerative disorder is NOS, and not fully diagnosed. B atten's disorder was considered in the past, but has been ruled out. Despite this, clinically, she is clearly severely compromised. She has been given a poor prognosis at [facility], as it is anticipated she will pass away in the next few years. As a consequence of her neurodegenerative disorder, she does have intractable seizures. She had a seizure at [place] where she lives. The y gave intranasal Valium, which stopped the seizure. They then sent her to the emergency room. She has had no further seizures since admission. Neurology saw her in consultation, and felt breakthro ugh seizures are going to be inevitable. She is on maximal four-drug therapy, and nothing further c an be added at this time. These seizures will continue to be more frequent, and will continue to pr ogress due to her progressive degenerative disorder. Her overall care is felt to be futile, and artie harrell was discussed with her mother, who is her power of litigation attorney associate. They are in quite a bit of denial, a t this point, regarding her prognosis, and no progress was made with Palliative Care. She continues to be a full cor. She did have a postictal state, but was very medically stable throughout her hos pitalization, and we really did not do much, other than observe her. I would licensed mental health counselor [place] to maybe consider not transferring her back to the emergency room with every seizure, if she breaks eas osmin with her intranasal Valium. The patient has known chronic autonomic instability, with bradycardia and hypotensive intermittently , which she has continued to show here. She was previously seen by Cardiology, and given her poor p rognosis, a pacemaker is not felt to be indicated. We are unable to assess any symptomatology in her , given her chronic debilitated state. She has a PEG tube for dysphagia. She does, however, eat orally as well. Her postictal state was q uite significant throughout her hospitalization, and we are recommending ongoing p.o. until she is m ore awake. She is known very well by Speech Therapy at [place]. We are recommending ongoing n.p .o. with PEG tube feeds and medication only, until Speech Therapy clears her at [place] to resume oral intake. DISCHARGE MEDICATIONS: Please see computerized record for full detailed list. There are no new med ications given at the time of hospital discharge. ADDITIONAL DISCHARGE INSTRUCTIONS: 1. N.p.o. with tube feeds only until cleared by Speech Pathology at [place] to resume oral feeds . 2. Intractable seizures, on maximal seizure medication, with expectation for ongoing seizures to be come more frequent, as her neurodegenerative disorder progresses. Consider not sending the patient back to the hospital with every seizure, if they break easily with intranasal Valium. Greater 30 minutes' time was spent arranging this discharge. Patient seen and examined by me on the day of discharge. /[id number]/MODL
== END 2017-01-04 16:39 | DRG 101 ==
LOC: EDUNIT# → F3E 22:29
PROVIDERS: ADMIT Internal Medicine; ATTEND Hospitalist
DX: G40.909 Epilepsy, unspecified, not intractable, without status epilepticus (principal); R13.19 Other dysphagia; G31.9 Degenerative disease of nervous system, unspecified; H35.52 Pigmentary retinal dystrophy; Z93.1 Gastrostomy status; Z74.01 Bed confinement status
CPT/HCPCS: 80175-90; 92610-GN; 96365; J0692; J1650; J2185; J3370

== ENCOUNTER 2017-05-30 22:34 | Emergency (ER) | payer MEDICAID ==
[2017-05-30 22:46] VITALS: TEMP 98.6
[2017-05-30] MEDS ORDERED: GASTROVIEW 30 ML UNIT PO ONE (22:59)
--- NOTE | 2017-05-30 23:06 | EDPHY ---
H & P Smoking Status: Never smoked Time Seen by Provider: 05/30/17 22:39 HPI/ROS: CHIEF COMPLAINT: G-tube pulled out HISTORY OF PRESENT ILLNESS: 26-year-old female who resides at [facility] presents to the emergency department after her G-tube was pulled out by herself. This has happened multiple times. The patient has multiple medical problems. The patient has no complaints. She denies abdominal pain or headache. No reports of vomiting. She last had her G-tube replaced in this emergency department in October of 2016. REVIEW OF SYSTEMS: Constitutional: No fever, no chills. Eyes: No double or blurry vision. ENT: No sore throat. Respiratory: No cough, no shortness of breath. Cardiac: No chest pain. Gastrointestinal: No abdominal pain, vomiting or diarrhea. Genitourinary: No dysuria. Musculoskeletal: No neck or back pain. Skin: No rashes. Neurological: No headache. (Ely Thomason) Past Medical/Surgical History: Bradycardia, retinitis pigmentosa, epilepsy with progressive neuro degenerative disorder, failure to thrive, anorexia with severe malnutrition and PEG tube, pelvis fracture, severe depression (Ely Thomason) Social History[facility] Physical Exam: General Appearance: Alert, no distress. Afebrile. Eyes: Pupils equal and round. Extraocular motions are all intact. ENT: Mouth: Mucous membranes slightly dry. Respiratory: No wheezing, rhonchi, or rales, lungs are clear to auscultation. Cardiovascular: Regular rate and rhythm. Gastrointestinal: Abdomen is soft and nontender, no masses, no rebound or guarding, bowel sounds normal. No CVA tenderness bilaterally. Neurological: Uncooperative, cannot determine. Skin: Warm and dry, no rashes. Musculoskeletal: Nontender to palpate along the cervical, thoracic or lumbar spine. Neck is supple. Extremities: Full range of motion and no peripheral edema. Psychiatric: No agitation. (Ely Thomason) Constitutional: Initial Vital Signs Temperature (C) 37.0 C 05/30/17 22:33 Heart Rate 58 L 05/30/17 22:33 Respiratory Rate 18 05/30/17 22:33 Blood Pressure 106/61 05/30/17 22:33 O2 Sat (%) 92 05/30/17 22:33 O2 Delivery Mode Room Air Allergies/Adverse Reactions: lorazepam Allergy (Verified 01/02/17 19:31) Other-Enter Comments cantaloupe Allergy (Uncoded 01/02/17 19:31) Home Medications: Medication Instructions Recorded Acetaminophen [Tylenol ES 500 mg 1,000 mg TUBE Q8HRS PRN 01/02/17 (*)] Calcium Carbonate [Tums 500MG (*)] 500 mg TUBE BID 01/02/17 Divalproex [Depakote Sprinkle 125 625 mg TUBE BID 01/02/17 MG (*)] FLUoxetine [Prozac 10 MG (*)] 10 mg TUBE DAILY 01/02/17 Ipratropium/Albuterol [Duoneb (*)] 3 ml IH Q4HRS PRN 01/02/17 Midazolam HCl/Pf [Midazolam HCl 5 1 ml EACHNARE DAILY PRN 01/02/17 mg/ml Vial] OLANZapine [Zyprexa] 10 mg TUBE DAILY 01/02/17 Sennosides/Docusate Sodium 2 each TUBE BID 01/02/17 [Senna-Docusate Sodium Tablet] Zonisamide [Zonegran 100MG (*)] 100 mg TUBE BID 01/02/17 levOCARNitine (WITH SUGAR) 2 ml TUBE BID 01/02/17 [Levocarnitine 1 G/10 ml Soln] Ergocalciferol [Vitamin D2 (*)] 50,000 unit TUBE SA 05/31/17 Lactobacil 2-S.thermo-Bifido 1 1 each TUBE DAILY 05/31/17 [Vsl#3 Packet] Lipase 12,000/Amylase/Protease 1 cap TUBE TID 05/31/17 [Creon 12 (*)] Nystatin Powder [Mycostatin Powder] 1 tiffanie TP TID 05/31/17 Pregabalin [Lyrica 50mg (*)] 100 mg TUBE BID 05/31/17 lamoTRIgine [LamICTAL 100 MG (*)] 200 mg TUBE BID 05/31/17 Medical Decision Making - Diagnostics Imaging Results: Imaging Impressions Abdomen X-Ray 05/30/17 23:12 Impression: 1. Gastrostomy tube in stomach lumen. 2. Query pneumatosis in right hemicolon. No pneumoperitoneum. Findings communicated to Dr. Hanson via secure text at 05/31/2017 11:30. ED Course/Re-evaluation: 0123AM: I made multiple attempts to try to place a G-tube in the track. It was reported by the nursing facility that she had a 20 Jamaican in there. However was unable to pass this at all. I was able to be find a 16 Jamaican G- tube however this still will not pass I tried multiple attempts to get this to go. I encountered great resistance in the patient starts complaining of pain. I made multipe attempts. I was able to place a 10 Jamaican Bob catheter. Then even this was difficult. This will be confirmed with Gastrografin with KUB. 0142AM: 30 mL of Gastrografin was placed in this Bob tube a KUB was shot shortly after. Gastrografin is seen inside the stomach lining. No extravasation. Stomach rugae visualized on the Gastrografin. This patient to go back to her facility tonight with a Bob catheter, 10 Jamaican Bob placed, acting as a PEG tube however she will need definitive management and fender placement of the real PEG tube as this is likely to be clogged given how small it is. 0150AM: Spoke with GI, Dr. Rojas understands a 10 Jamaican Bob catheter placed. Patient will most likely be back tomorrow for definitive placement of a PEG tube. I did offer admission for placement of this to tomorrow however Dr. Rojas was fine with her going back to the nursing facility. Will relay all this information nursing facility. PROCEDURE: PEG TUBE REPLACEMENT. I was unable to place a 16 Jamaican, 20 Jamaican or 22 Jamaican PEG TUBE as the opening on her abdomen is very small. I was meeting great resistance. Additionally the patient is complaining of pain. Unclear why the opening is so small it is possible there was previous trauma there is inflammation present. Possible there is a false tract. However I was able to place with minimal resistance or force a 10 Jamaican Bob catheter. The balloon was blown up with 10 cc syringe. This was confirmed with Gastrografin view on the KUB. This was then flushed. (Rigo Bowman) 26-year-old female presents to the emergency department after her G-tube was accidentally removed. The patient has been seen in the emergency department multiple times with similar complaints. The case was discussed with Dr. Rigo Bowman, secondary supervising physician , who also evaluated the patient and made multiple attempts to reinsert PEG tube. See procedure note. Case will be turned over to Dr. Rigo Bowman for disposition and plan. (Ely Thomason) Differential Diagnosis: Including but not limited to PEG tube displacement, PEG tube malfunction, dehydration, sepsis (Ely Thomason) - Data Points Medications Given: Discontinued Medications Diatrizoate Meglum/Diatrizoate Sod (Gastroview 66-10 Soln) 30 ml PO EDNOW ONE Stop: 05/30/17 23:00 Last Admin: 05/31/17 01:50 Dose: 30 ml Departure - Departure Disposition: Home, Routine, Self-Care Clinical Impression: PEG (percutaneous endoscopic gastrostomy) adjustment/replacement/removal Condition: Good Instructions: How to Use and Care for Your PEG Tube (ED) Additional Instructions: 1. You have a Bob catheter temporizing the placement of Real PEG TUBE. 2. This evening are unable to place a PEG Tube as the size we had any emergency room and hospital at this time will unable to pass through the track. 3. You will need to have a definitive PEG tube placed. He may return to the hospital tomorrow for this. During normal operating hours. Referrals: DANIEL LANG [Other] - As per Instructions Ronald Rojas MD [Medical Doctor] - As per Instructions
[2017-05-31 00:12] VITALS: RESP 16
[2017-05-31 01:54] VITALS: BP 109/70; PULSE 57; O2SAT 93
== END 2017-05-31 02:28 | disposition home or self-care (01) ==
LOC: EDUNIT#
DX: K94.23 Gastrostomy malfunction (principal)

== ENCOUNTER 2017-05-31 03:44 | Observation (INO) | payer MEDICAID ==
--- NOTE | 2017-05-31 03:49 | EDPHY ---
H & P HPI/ROS: HPI CHIEF COMPLAINT: Need for PEG tube, here earlier HISTORY OF PRESENT ILLNESS: Patient is a 26-year-old female she presents back to the emergency room from her living facility at [facility] for PEG tube management. The patient was seen here earlier after her PEG tube was noticed to be missing at 9:00 p.m. yesterday evening from her facility. Facility reports that she pulled it out. She arrived initially in the emergency room on her previous visit and was stated that she had a 20 Mauritanian PEG tube placed. I did see her on her previous ER visit tried to place a 20 Mauritanian PEG tube was unsuccessful due to significant resistance. We then obtained the 16 Mauritanian PEG tube and I was still unable to pass this. I placed a Bob catheter and the only size catheter I could get in was a 10 Mauritanian. This is rather small. This was confirmed with a KUB with Gastrografin. I did consult Gastroenterology at that time. However was thought that the patient go home with this 10 Mauritanian catheter and then have a PEG tube placed at a later time. The patient was discharged back to her living facility. However after further review of her medications she takes multiple medications including seizure medications and I did not feel that the 10 Mauritanian Bob catheter replaced would be able to handle these meds and then she was subsequently become at risk for seizure. I felt the best thing for the patient is for her to return from her living facility to the emergency room to then be admitted to the hospital for PEG tube placement this morning. The patient has returned she has no complaints infection he sleeping. Her Bob catheter in her G-tube site is in place. Dressing in place. Past Medical History: Neuro degenerative disorder, seizure disorder, metabolic encephalopathy, blindness Past Surgical History: G-tube Social History: Lives in at [facility] Family History: Noncontributory ROS REVIEW OF SYSTEMS: A comprehensive 10 point review of systems is otherwise negative aside from elements mentioned in the history of present illness. Exam Constitutional triage nursing summary reviewed, vital signs reviewed, awake/ alert. Eyes normal conjunctivae and sclera, EOMI, blind HENT normal inspection, atraumatic, moist mucus membranes, no epistaxis, neck supple/ no meningismus, no raccoon eyes. Respiratory clear to auscultation bilaterally, normal breath sounds, no respiratory distress, no wheezing. Cardiovascular rate normal, regular rhythm, no murmur, no edema, distal pulses normal. Gastrointestinal Bob catheter [address] in the G-tube site. soft, non-tender, no rebound, no guarding, normal bowel sounds, no distension, no pulsatile mass. Genitourinary no CVA tenderness. Musculoskeletal no midline vertebral tenderness, full range of motion, no calf swelling, no tenderness of extremities, no meningismus, good pulses, neurovascularly intact. Skin pink, warm, & dry, no rash, skin atraumatic. Neurologic at her neurological baseline. Sleepy. Heme/Lymph/Immune no lymphadenopathy. Differential Diagnosis: Includes but is not limited to in a particular G-tube malfunction, need for G-tube for medications, seizure disorder, neuro degenerative disorder Medical Decision Making: Plan for this patient I will admitted to the hospital for definitive treatment of a G-tube. As I do not feel that the 10 Mauritanian Bob catheter that I was able to pass earlier in the evening will suffice for medications. Will consult the hospitalist service for admission. Will additionally consult GI for them to place a PEG tube later today. 0408: Spoke with the hospitalist service Dr. Argueta agrees to admit this patient. Will consult GI this morning. Again I tried multiple attempts to place PEG tube a 16 Mauritanian, and 20 Mauritanian 20 Mauritanian was very large. The 16 Mauritanian still would not go in. We did not have anything smaller than this. I elected to put a 10 Mauritanian Bob in the hold the tract open. Even this was somewhat difficult to pass. Patient will need a GI consult or surgical consult for PEG tube placement. Source: Patient, EMS - Medical/Surgical History Hx Asthma: No Hx Chronic Respiratory Disease: No Hx Diabetes: No Hx Cardiac Disease: No Hx Renal Disease: No Hx Cirrhosis: No Hx Alcoholism: No Hx HIV/AIDS: No Hx Splenectomy or Spleen Trauma: No Other PMH: bradycardia, retinitis pigmentosa, epilepsy with progressive neurodegenerative disorder, failure to thrive, blind (sees shadows only), anorexia with severe malnutrition and PEG tube, closed fx pelvis, severe depression without psychotic features - Social History Smoking Status: Never smoked Constitutional: Initial Vital Signs Temperature (C) 37.1 C 05/31/17 03:40 Heart Rate 50 L 05/31/17 03:40 Respiratory Rate 16 05/31/17 03:40 Blood Pressure 106/65 05/31/17 03:40 O2 Sat (%) 95 05/31/17 03:40 O2 Delivery Mode Room Air Allergies/Adverse Reactions: lorazepam Allergy (Verified 01/02/17 19:31) Other-Enter Comments cantaloupe Allergy (Uncoded 01/02/17 19:31) Home Medications: Medication Instructions Recorded Acetaminophen [Tylenol ES 500 mg 1,000 mg PO Q6 PRN 01/02/17 (*)] Calcium Carbonate [Tums 500MG (*)] 500 mg PO BID 01/02/17 Cholecalciferol Vit D3 [Vitamin D3 50,000 unit PO SA 01/02/17 (*)] Divalproex [Depakote Sprinkle 125 625 mg PO BID 01/02/17 MG (*)] FLUoxetine [Prozac 10 MG (*)] 10 mg PO DAILY 01/02/17 Herbals/Supplements -Info Only 1 ea PO DAILY 01/02/17 Ipratropium/Albuterol [Duoneb (*)] 3 ml IH QID PRN 01/02/17 Lipase/Protease/Amylase [CREON DR 1 each PO TID 01/02/17 12,000 UNITS CAPSULE] Midazolam HCl/Pf [Midazolam HCl 5 1 ml EACHNARE DAILY PRN 01/02/17 mg/ml Vial] OLANZapine [Zyprexa] 10 mg PO HS 01/02/17 Oxymetazoline HCl [Nasal [place]] 2 ml EACHNARE QID 01/02/17 Pregabalin [LYRICA] 100 mg TUBE BID 01/02/17 Sennosides/Docusate Sodium 2 each PO BID 01/02/17 [Senna-Docusate Sodium Tablet] Zonisamide [Zonegran 100MG (*)] 100 mg PO BID 01/02/17 guaiFENesin [Mucinex 600 MG (*)] 600 mg PO Q12H PRN 01/02/17 lamoTRIgine [Lamictal] 200 mg PO BID 01/02/17 levOCARNitine (WITH SUGAR) 2 ml TUBE BID 01/02/17 [Levocarnitine 1 G/10 ml Soln] Medical Decision Making - Data Points Laboratory Results: Laboratory Results 05/31/17 04:03 05/31/17 05/31/17 04:03 04:03 WBC 4.89 10^3/uL 10^3/uL (3.80-9.50) RBC 5.08 10^6/uL 10^6/uL (4.18-5.33) Hgb 15.8 g/dL g/dL (12.6-16.3) Hct 46.7 % % (38.0-47.0) MCV 91.9 fL fL (81.5-99.8) MCH 31.1 pg pg (27.9-34.1) MCHC 33.8 g/dL g/dL (32.4-36.7) RDW 12.4 % % (11.5-15.2) Plt Count 145 10^3/uL L 10^3/uL (150-400) MPV 9.9 fL fL (8.7-11.7) Neut % (Auto) 48.9 % % (39.3-74.2) Lymph % (Auto) 43.6 % % (15.0-45.0) [place] % (Auto) 5.9 % % (4.5-13.0) Eos % (Auto) 0.4 % L % (0.6-7.6) Baso % (Auto) 0.8 % % (0.3-1.7) Nucleat RBC Rel Count 0.0 % % (0.0-0.2) Absolute Neuts (auto) 2.39 10^3/uL 10^3/uL (1.70-6.50) Absolute Lymphs (auto) 2.13 10^3/uL 10^3/uL (1.00-3.00) Absolute Monos (auto) 0.29 10^3/uL L 10^3/uL (0.30-0.80) Absolute Eos (auto) 0.02 10^3/uL L 10^3/uL (0.03-0.40) Absolute Basos (auto) 0.04 10^3/uL 10^3/uL (0.02-0.10) Absolute Nucleated RBC 0.00 10^3/uL 10^3/uL (0-0.01) Immature Gran % 0.4 % % (0.0-1.1) Immature Gran # 0.02 10^3/uL 10^3/uL (0.00-0.10) Sodium Pending Potassium Pending Chloride Pending Carbon Dioxide Pending Anion Gap Pending BUN Pending Creatinine Pending Estimated GFR Pending Glucose Pending Calcium Pending Departure - Departure Disposition: [facility] Inpatient Acute Clinical Impression: Gastrostomy tube dysfunction Condition: Fair
[2017-05-31 04:11] LABS: % IMMATURE GRANULYOCYTES 0.4 % (0.0-1.1); ABSOLUTE IMMATURE GRANULOCYTES 0.02 10^3/uL (0.00-0.10); ADD DIFF? NO; ADD MORPH? NO; ADD SCAN? NO; ATYPICAL LYMPHOCYTE FLAG 0 (0-99); FRAGMENT RBC FLAG 0 (0-99); HEMATOCRIT 46.7 % (38.0-47.0); HEMOGLOBIN 15.8 g/dL (12.6-16.3); LEFT SHIFT FLG 0 (0-99); LIPEMIA HEMOLYSIS FLAG 90 (0-99); MEAN CELL HEMOGLOBIN 31.1 pg (27.9-34.1); MEAN CELL HEMOGLOBIN CONCENTR. 33.8 g/dL (32.4-36.7); MEAN CELL VOLUME 91.9 fL (81.5-99.8); MEAN PLATELET VOLUME 9.9 fL (8.7-11.7); PLATELET CLUMPS FLAG 0 (0-99); PLATELET COUNT 145 10^3/uL (150-400); RED BLOOD CELL COUNT 5.08 10^6/uL (4.18-5.33); RED CELL DISTRIBUTION WIDTH 12.4 % (11.5-15.2)
[2017-05-31] MEDS ORDERED: ONDANSETRON DISINTEGRATING 4 MG TAB PO PRN (04:15)
[2017-05-31] MEDS ORDERED: ONDANSETRON 4 MG/2 ML VIAL IVP PRN ×2 (04:15→10:23)
[2017-05-31] MEDS ORDERED: ACETAMINOPHEN 325 MG TAB PO PRN (04:15)
[2017-05-31 04:23] LABS: ANION GAP 11 mEq/L (8-16); CALCIUM 9.3 mg/dL (8.5-10.4); CARBON DIOXIDE 28 mEq/l (22-31); CHLORIDE 108 mEq/L (97-110); CREATININE 0.7 mg/dL (0.6-1.0); GLOMERULAR FILTRATION RATE > 60; GLUCOSE 81 mg/dL (70-100); POTASSIUM 3.8 mEq/L (3.5-5.2); SODIUM 147 mEq/L (134-144)
--- NOTE | 2017-05-31 04:23 | PDGENHP ---
History and Physical - Chief Complaint PEG tube malfunction - History of Present Illness 26 yo F w/ progressive neurodegenerative d/o NOS, seizure d/o, and chronic dysphagia necessitating PEG tube placement presents from [place] after PEG tube became dislodged. She receives all medications through the tube so she needs it in order to receive her seizure medications. They were unable to reinsert a tube (tried both 16F and 20F) in the ED so patient was admitted for placement by GI later today. History Information - Allergies/Home Medication List Allergies/Adverse Reactions: lorazepam Allergy (Verified 01/02/17 19:31) Other-Enter Comments cantaloupe Allergy (Uncoded 01/02/17 19:31) Home Medications: Acetaminophen [Tylenol ES 500 mg (*)] 1,000 mg PO Q6 PRN 01/02/17 [Last Taken Unknown] Calcium Carbonate [Tums 500MG (*)] 500 mg PO BID 01/02/17 [Last Taken 01/02/17 2 DOSES] Cholecalciferol Vit D3 [Vitamin D3 (*)] 50,000 unit PO SA 01/02/17 [Last Taken 12/31/16] Divalproex [Depakote Sprinkle 125 MG (*)] 625 mg PO BID 01/02/17 [Last Taken 2 doses] FLUoxetine [Prozac 10 MG (*)] 10 mg PO DAILY 01/02/17 [Last Taken 01/02/17] Herbals/Supplements -Info Only 1 ea PO DAILY 01/02/17 [Last Taken Unknown] Ipratropium/Albuterol [Duoneb (*)] 3 ml IH QID PRN 01/02/17 [Last Taken 2 DOSES] Lipase/Protease/Amylase [CREON DR 12,000 UNITS CAPSULE] 1 each PO TID 01/02/17 [ Last Taken 01/02/17 3 DOSES] Midazolam HCl/Pf [Midazolam HCl 5 mg/ml Vial] 1 ml EACHNARE DAILY PRN 01/02/17 [ Last Taken Unknown] OLANZapine [Zyprexa] 10 mg PO HS 01/02/17 [Last Taken 01/01/17] Oxymetazoline HCl [Nasal [place]] 2 ml EACHNARE QID 01/02/17 [Last Taken 01/02/17 3 TIMES] Pregabalin [LYRICA] 100 mg TUBE BID 01/02/17 [Last Taken 01/02/17 am dose] Sennosides/Docusate Sodium [Senna-Docusate Sodium Tablet] 2 each PO BID [Last Taken 01/02/17 am dose] Zonisamide [Zonegran 100MG (*)] 100 mg PO BID 01/02/17 [Last Taken 01/02/17 AM DOSE] guaiFENesin [Mucinex 600 MG (*)] 600 mg PO Q12H PRN 01/02/17 [Last Taken ] lamoTRIgine [Lamictal] 200 mg PO BID 01/02/17 [Last Taken 01/02/17 am dose] levOCARNitine (WITH SUGAR) [Levocarnitine 1 G/10 ml Soln] 2 ml TUBE BID [Last Taken 01/02/17 am dose] I have personally reviewed and updated: family history, medical history - Past Medical History Additional medical history: Neurodegerative disease. intractable seizures. retinitis pigmentosis with resulting blindness. dysphagia s/p PEG - Surgical History Additional surgical history: PEG placement - Family History Positive for: non-pertinent - Social History Smoking Status: Never smoked Additional social history: Pt resides in [place]. Mother is involved in her care. Review of Systems Review of Systems: ROS: 10pt was reviewed & negative except for what was stated in HPI & below Physical Exam Physical Exam: Temp Pulse Resp BP Pulse Ox 37.1 C 50 L 16 106/65 95 05/31/17 03:40 05/31/17 03:40 05/31/17 03:40 05/31/17 03:40 05/31/17 03:40 Constitutional: chronically ill appearing, other (Minimally responsive) Eyes: PERRL, anicteric sclera Ears, Nose, Mouth, Throat: moist mucous membranes, no oral mucosal ulcers Cardiovascular: regular rate and rhythym, no murmur, rub, or gallop Respiratory: no respiratory distress, clear to auscultation Gastrointestinal: soft, non-tender abdomen, other (Bob in place of PEG currently) Skin: warm, normal color Neurologic: other (Minimally responsive) Lab Data & Imaging Review 05/31/17 04:03 05/31/17 04:03 WBC 4.89 10^3/uL (3.80-9.50) 05/31/17 04:03 RBC 5.08 10^6/uL (4.18-5.33) 05/31/17 04:03 Hgb 15.8 g/dL (12.6-16.3) 05/31/17 04:03 Hct 46.7 % (38.0-47.0) 05/31/17 04:03 MCV 91.9 fL (81.5-99.8) 05/31/17 04:03 MCH 31.1 pg (27.9-34.1) 05/31/17 04:03 MCHC 33.8 g/dL (32.4-36.7) 05/31/17 04:03 RDW 12.4 % (11.5-15.2) 05/31/17 04:03 Plt Count 145 10^3/uL (150-400) L 05/31/17 04:03 MPV 9.9 fL (8.7-11.7) 05/31/17 04:03 Neut % (Auto) 48.9 % (39.3-74.2) 05/31/17 04:03 Lymph % (Auto) 43.6 % (15.0-45.0) 05/31/17 04:03 [place] % (Auto) 5.9 % (4.5-13.0) 05/31/17 04:03 Eos % (Auto) 0.4 % (0.6-7.6) L 05/31/17 04:03 Baso % (Auto) 0.8 % (0.3-1.7) 05/31/17 04:03 Nucleat RBC Rel Count 0.0 % (0.0-0.2) 05/31/17 04:03 Absolute Neuts (auto) 2.39 10^3/uL (1.70-6.50) 05/31/17 04:03 Absolute Lymphs (auto) 2.13 10^3/uL (1.00-3.00) 05/31/17 04:03 Absolute Monos (auto) 0.29 10^3/uL (0.30-0.80) L 05/31/17 04:03 Absolute Eos (auto) 0.02 10^3/uL (0.03-0.40) L 05/31/17 04:03 Absolute Basos (auto) 0.04 10^3/uL (0.02-0.10) 05/31/17 04:03 Absolute Nucleated RBC 0.00 10^3/uL (0-0.01) 05/31/17 04:03 Immature Gran % 0.4 % (0.0-1.1) 05/31/17 04:03 Immature Gran # 0.02 10^3/uL (0.00-0.10) 05/31/17 04:03 Assessment & Plan Assessment: 26 yo F w/ progressive neurodegenerative d/o NOS, seizure d/o, and chronic dysphagia s/p PEG presents w/ need for PEG tube replacement. Plan: 1. Chronic dysphagia, PEG tube dependent - PEG tube became dislodged at facility and ED was unable to replace. - GI consult for PEG tube placement today 2. Progressive neurodegenerative d/o NOS - Poor prognosis, has had extensive w/ u at [facility] 3. Seizure d/o - Related to above, on multiple meds through PEG tube 4. Retinitis pigmentosa blindness Diet - NPO Code - Full Ppx - SCDs Dispo - admit to observation status
[2017-05-31] MEDS ORDERED: LR 1,000 ML IV ONE (09:02)
--- NOTE | 2017-05-31 09:27 | PDANEPAE ---
ANE History of Present Illness displaced G-tube, for redo-PEG ANE Past Medical History - Pulmonary History Hx Oxygen in Use at Home: No Hx Sleep Apnea: No Sleep Apnea Screening Result - Last Documented: Negative - Neurologic History Neurologic History Comment: degenerative neurologic condition - Endocrine History Hx Diabetes: No - Chronic Pain History Chronic Pain: No (Pt unable to verbalize pain goal) ANE Review of Systems Review of Systems: - Exercise capacity METS (RN): 1 METS ANE Patient History - Allergies Allergies/Adverse Reactions: lorazepam Allergy (Verified 01/02/17 19:31) Other-Enter Comments cantaloupe Allergy (Uncoded 01/02/17 19:31) - Home Medications Home medications: home medication list seen and reviewed Home Medications: Acetaminophen [Tylenol ES 500 mg (*)] 1,000 mg TUBE Q8HRS PRN 01/02/17 [Last Taken Unknown] Calcium Carbonate [Tums 500MG (*)] 500 mg TUBE BID 01/02/17 [Last Taken 2 DOSES] Divalproex [Depakote Sprinkle 125 MG (*)] 625 mg TUBE BID 01/02/17 [Last Taken 01/02/17 2 doses] FLUoxetine [Prozac 10 MG (*)] 10 mg TUBE DAILY 01/02/17 [Last Taken 01/02/17] Ipratropium/Albuterol [Duoneb (*)] 3 ml IH Q4HRS PRN 01/02/17 [Last Taken 2 DOSES] Midazolam HCl/Pf [Midazolam HCl 5 mg/ml Vial] 1 ml EACHNARE DAILY PRN 01/02/17 [ Last Taken Unknown] OLANZapine [Zyprexa] 10 mg TUBE DAILY 01/02/17 [Last Taken 01/01/17] Sennosides/Docusate Sodium [Senna-Docusate Sodium Tablet] 2 each TUBE BID [Last Taken 01/02/17 am dose] Zonisamide [Zonegran 100MG (*)] 100 mg TUBE BID 01/02/17 [Last Taken 01/02/17 AM DOSE] levOCARNitine (WITH SUGAR) [Levocarnitine 1 G/10 ml Soln] 2 ml TUBE BID [Last Taken 01/02/17 am dose] Ergocalciferol [Vitamin D2 (*)] 50,000 unit TUBE SA 05/31/17 [Last Taken Unknown ] Lactobacil 2-S.thermo-Bifido 1 [Vsl#3 Packet] 1 each TUBE DAILY 05/31/17 [Last Taken Unknown] Lipase 12,000/Amylase/Protease [Creon 12 (*)] 1 cap TUBE TID 05/31/17 [Last Taken Unknown] Nystatin Powder [Mycostatin Powder (RX)] 1 tiffanie TP TID 05/31/17 [Last Taken Unknown] Pregabalin [Lyrica 50mg (*)] 100 mg TUBE BID 05/31/17 [Last Taken Unknown] lamoTRIgine [LamICTAL 100 MG (*)] 200 mg TUBE BID 05/31/17 [Last Taken Unknown] - NPO status NPO Since - Liquids (Date): 05/30/17 NPO Since - Liquids (Time): 00:00 NPO Since - Solids (Date): 05/30/17 NPO Since - Solids (Time): 00:00 - Anes Hx Anes Hx: no prior problems - Smoking Hx Smoking Status: Never smoked - Alcohol Use Alcohol Use: None - Family Anes Hx Family Anes Hx: none ANE Labs/Vital Signs - Labs Result Diagrams: 05/31/17 04:03 05/31/17 04:03 - Vital Signs Blood Pressure: 91/45 Heart Rate: 45 Respiratory Rate: 14 O2 Sat (%): 91 Height: 162.56 cm Weight: 68.039 kg ANE Physical Exam - Airway Neck exam: decreased ROM Mallampati Score: Class 2 Mouth exam: normal dental/mouth exam - Pulmonary Pulmonary: no respiratory distress - Cardiovascular Cardiovascular: regular rate and rhythym - ASA Status ASA Status: IV ANE Anesthesia Plan Anesthesia Plan: general endotracheal anesthesia, GA with mask (ETT vs Mask)
[2017-05-31] MEDS ORDERED: fentaNYL 100 MCG/2 ML INJ ONE (09:35)
[2017-05-31] MEDS ORDERED: PROPOFOL/EMULSION 500 MG/50 ML BOTTLE IV ONE (09:35)
[2017-05-31] MEDS ORDERED: epHEDrine SULFATE 10 MG/ML SYR ONE ×2 (09:41)
[2017-05-31] MEDS ORDERED: DEXAMETHASONE 4 MG/ML VIAL ONE (09:51)
[2017-05-31] MEDS ORDERED: ONDANSETRON 4 MG/2 ML VIAL ONE (09:52)
[2017-05-31] MEDS ORDERED: METOCLOPRAMIDE 10 MG/2 ML VIAL IVP PRN (10:23)
[2017-05-31] MEDS ORDERED: LABETALOL HCL 5 MG/ML 20 ML MDV IVP PRN (10:23)
[2017-05-31] MEDS ORDERED: ALBUTEROL 3 ML DEYVIAL IH PRN (10:23)
[2017-05-31] MEDS ORDERED: PROMETHAZINE HCL 25 MG/ML INJ IVP PRN (10:23)
[2017-05-31] MEDS ORDERED: NALOXONE HCL 0.4 MG/ML INJ IVP PRN (10:23)
[2017-05-31] MEDS ORDERED: fentaNYL 100 MCG/2 ML INJ IVP PRN (10:23)
[2017-05-31] MEDS ORDERED: MEPERIDINE 25 MG/ML SYR IVP PRN (10:23)
[2017-05-31] MEDS ORDERED: LR 500 ML IV PRN (10:23)
[2017-05-31] MEDS ORDERED: DEXAMETHASONE 4 MG/ML VIAL IVP PRN (10:23)
--- NOTE | 2017-05-31 10:23 | POSTANESTH ---
Post Anesthetic Evaluation Cardiovascular Status: Normal, Stable Respiratory Status: Normal, Stable, Similar to Pre-op Cond., Tx Decrease in SpO2 Level of Consciousness/Mental Status: Can Participate in Eval Pain Control: Adequate, Prn Tx Ordered Nausea/Vomiting Control: Adequate, Prn Tx Ordered Complications Possibly Related to Anesthesia: None Noted
--- NOTE | 2017-05-31 10:25 | GIREPORT ---
[facility] - Endoscopy Department Patient Name: Stella Lopes Procedure Date: 05/31/2017 9:16 AM Patient Type: Inpatient Attending MD/ ER Physician: Ronald Rojas MD Procedure: Upper GI endoscopy Indications: Dysphagia Providers: Ronald Rojas MD Medicines: General Anesthesia Complications: No immediate complications. Description of Procedure: After obtaining informed consent, the endoscope was passed under direct vision. Throughout the procedure, the patient's blood pressure, pulse, and oxygen saturations were monitored continuously. The Endoscope was intro duced through the mouth, and advanced to the second part of duodenum. The [facility] GI endoscopy was performed with moderate difficulty due to stenosis. Succe ssful completion of the procedure was aided by performing the maneuvers docum ented (below) in this report. The patient tolerated the procedure well. Findings: One severe benign-appearing, intrinsic stenosis was found 40 cm from th e incisors. And was traversed after dilation. A TTS dilator was passed th rough the scope. Dilation with a 10-11-12 mm balloon dilator was performed to 12 mm. There was evidence of a gastrostomy stoma present in the gastric body. Endoscopic placement of an externally [address] english [address] d. However the tube/internal bolster pulled through the stoma. Subsequentl y a 20 Czech Balloon type Gastrostomy tube was then placed though the stom a and inflated to 10 cc of NS. G tube was secure with external markings at 5 cm. The examined duodenum was normal. Estimated Blood Loss: Estimated blood loss: none. Post Op Diagnosis: - Benign-appearing esophageal stenosis. Dilated. - Gastrostomy present. - Normal examined duodenum. - An externally removable PEG placement was attempted but could not not be seated. Internal bolster pulled through the stoma. A 20 english balloon type G tube was then placed externally and balloon inflated to 10 cc NS. The internal portion was inspected and appeared to be in good position. The external markings of the G tube was at 5 cm. - No specimens collected. Recommendation: - May resume tube feeds and give mediation through G tube. - Thank you for allowing me to participate in the care of your patient. Attending Participation: I personally performed the entire procedure. Ronald Rojas MD Ronald Rojas MD 05/31/2017 10:24:24 AM This report has been signed electronicallyStmurali Rojas MD Number of Addenda: 0 Note Initiated On: 05/31/2017 9:16 AM [email or web address]
--- NOTE | 2017-05-31 14:30 | PDIAF ---
- Diagnosis Diagnosis: peg tube malfunction Code Status: Full Code - Medication Management Discharge Medications: Medications to Continue on Transfer Acetaminophen [Tylenol ES 500 mg (*)] 1,000 mg TUBE Q8HRS PRN 01/02/17 [Last Taken Unknown] Calcium Carbonate [Tums 500MG (*)] 500 mg TUBE BID 01/02/17 [Last Taken 2 DOSES] Divalproex [Depakote Sprinkle 125 MG (*)] 625 mg TUBE BID 01/02/17 [Last Taken 01/02/17 2 doses] FLUoxetine [Prozac 10 MG (*)] 10 mg TUBE DAILY 01/02/17 [Last Taken 01/02/17] Ipratropium/Albuterol [Duoneb (*)] 3 ml IH Q4HRS PRN 01/02/17 [Last Taken 2 DOSES] Midazolam HCl/Pf [Midazolam HCl 5 mg/ml Vial] 1 ml EACHNARE DAILY PRN 01/02/17 [ Last Taken Unknown] OLANZapine [Zyprexa] 10 mg TUBE DAILY 01/02/17 [Last Taken 01/01/17] Sennosides/Docusate Sodium [Senna-Docusate Sodium Tablet] 2 each TUBE BID [Last Taken 01/02/17 am dose] Zonisamide [Zonegran 100MG (*)] 100 mg TUBE BID 01/02/17 [Last Taken 01/02/17 AM DOSE] levOCARNitine (WITH SUGAR) [Levocarnitine 1 G/10 ml Soln] 2 ml TUBE BID [Last Taken 01/02/17 am dose] Ergocalciferol [Vitamin D2 (*)] 50,000 unit TUBE SA 05/31/17 [Last Taken Unknown ] Lactobacil 2-S.thermo-Bifido 1 [Vsl#3 Packet] 1 each TUBE DAILY 05/31/17 [Last Taken Unknown] Lipase 12,000/Amylase/Protease [Creon 12 (*)] 1 cap TUBE TID 05/31/17 [Last Taken Unknown] Nystatin Powder [Mycostatin Powder] 1 tiffanie TP TID 05/31/17 [Last Taken Unknown] Pregabalin [Lyrica 50mg (*)] 100 mg TUBE BID 05/31/17 [Last Taken Unknown] lamoTRIgine [LamICTAL 100 MG (*)] 200 mg TUBE BID 05/31/17 [Last Taken Unknown] Discharge Medications: Refer to the Discharge Home Medication list for PRN reason. - Orders Services needed: Registered Nurse, Physical Therapy, Occupational Therapy Isolation Type: None Diet Recommendation: no restrictions on diet Diet Texture: Regular Texture Diet - Follow Up Care Current Providers and Referrals: KASSIE GONZALEZ [Primary Care Provider] - As per Instructions
[2017-05-31 15:12] VITALS: RESP 16
[2017-05-31] MEDS ORDERED: NS 500 ML IV ONE (15:15)
--- NOTE | 2017-05-31 15:25 | ASMTCMCOM ---
CM Note CM Note Notes: Pt. is a 26-year-old disabled woman who lives at [facility]. Pt. admitted after her PEG tube became dislodged. Needed surgical repair. Pt. d/cing back to [facility] same day as admission. Pt. w/ hx. of a progressive neurological disorder, seizure disorder, chronic dysphagia, and blindness. Pt. on 8L O2 on an oxymask. [facility] picking Pt. up by stretcher at 15:40. [place] in admissions on vacation. Due to [place] holiday tomorrow and short staffing, Allison faxed hard copy of d/c paperwork to RN floor at [phone]. Also sent via [employer]. Allison called Pt' mother/TAYLA Fatima to let her know Pt. going back to [facility]. Akua grateful for the call. Allison discussed with Akua how to advocate for Pt's better care at [facility]. Akua cares for Pt's almost 10-year-old son. Current plan: Pt. to d/c today back to [facility] where she lives. Date Signed: 05/31/2017 03:25 PM Electronically Signed By:Oxana Randall LCSW
[2017-05-31 16:07] VITALS: BP 102/55; PULSE 67; TEMP 98.1; O2SAT 94
--- NOTE | 2017-05-31 16:08 | ASDISCHSUM ---
Discharge Information Plan Status:SNF Medically Cleared to Leave: Discharge Date:05/31/2017 04:03 PM D/C Disposition:Intermediate Facility ADT D/C Disposition:Intermediate Facility Projected Discharge Date:05/31/2017 04:00 PM Transportation at D/C:ALS/BLS Discharge Delay Reason: Follow-Up Date:05/31/2017 04:00 PM Discharge Slot: Final Diagnosis: Placement Information Referral Type:*Residential/SNF Referral ID:[id number] Provider Name:Emilee Yin [place] Address 1:[address] Address 2: City:[place] Selection Factors: State:[place] Patient Contact Information Contact Name:KRYSTIN Relationship:Mother Address:[address] Work Phone: City:[place] Alternate Phone: State/Zip Code:[place] [address] Email: Financial Information Financial Class: Primary Plan 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 Yes: Emergency dept visits in Answers: 1 last 6 months Score: 4 Date Signed: 05/31/2017 02:25 PM Electronically Signed By:Oxana Randall LCSW [facility] CM Progress Note CM Note CM Note Notes: Pt. is a 26-year-old disabled woman who lives at [facility]. Pt. admitted after her PEG tube became dislodged. Needed surgical repair. Pt. d/cing back to [place] same day as admission. Pt. w/ hx. of a progressive neurological disorder, seizure disorder, chronic dysphagia, and blindness. Pt. on 8L O2 on an oxymask. [facility] picking Pt. up by stretcher at 15:40. Bakari in admissions on vacation. Due to holiday tomorrow and short staffing, Allison faxed hard copy of d/c paperwork to RN floor at . Also sent via [employer]. Allison called Pt' mother/JOSEMANUELOA Akua to let her know Pt. going back to [place]. Akua grateful for the call. Allison discussed with Akua how to advocate for Pt's better care at [place]. Akua cares for Pt's almost 10-year-old son. Current plan: Pt. to d/c today back to [facility] where she lives. Date Signed: 05/31/2017 03:25 PM Electronically Signed By:Oxana Randall LCSW Case Management Discharge Plan Note Case Management Discharge Discharge Order Complete? Answers: Yes Patient to Obtain Answers: Other Notes: [facility] Medications Transportation Arranged Answers: [facility] Stretcher Transport will Pick (Date 05/31/2017 03:45 PM & Time) Case Management Transport Answers: Yes Notes: PCS done for stretcher Form Complete - Medicaid Faxed Final Orders Answers: Yes Notes: Hard faxed to [facility] lucia at their request. [employer] to o Agency/Facility Transfer Answers: Yes Report Printed & Faxed to Receiving Agency Family Notified Answers: Yes Notes: Allison spoke w/ mother Akua on phone Date Signed: 05/31/2017 04:07 PM Electronically Signed By:Oxana Randall LCSW Intervention Information
--- NOTE | 2017-05-31 18:47 | GDS ---
[f rep st] DISCHARGE SUMMARY DISCHARGE DIAGNOSES: Include: 1. Percutaneous endoscopic gastrostomy tube malfunction. 2. Chronic hypotension. 3. Progressive neurodegenerative d/o NOS, 4. seizure d/o 5. chronic dysphagia s/p PEG HISTORY OF PRESENT ILLNESS: A 26-year-old female, who is a resident at [facility], and PEG tube dependent for nutrition. She presents with a PEG-tube malfunction. For details of the patient's initial presentation, please see the History and Physical dated 05/31/2017. CONSULTATIVE SERVICES: Include Gastroenterology. PROCEDURES: PEG tube exchange was performed on 05/31/2017 without complication. HOSPITAL COURSE BY ISSUE: PEG tube malfunction: Patient was admitted and taken to the endoscopy suite for PEG tube exchange. Patient had no complications post procedure. Evaluation postprocedure cleared the tube for use by Gastroenterology. Patient will be discharged back to [facility] for ongoing tube feedings and medications per tube. MEDICATIONS AT DISPOSITION: Please reference med rec printed on 05/31/2017. FOLLOWUP APPOINTMENTS: Include with her primary care provider for ongoing management of her chronic medical co-morbidities. PENDING STUDIES: At the time of this dictation, none. /[id number]/MODL MTDD
== END 2017-05-31 16:03 ==
LOC: EDUNIT# → F3E 04:39
PROVIDERS: ADMIT Student in an Organized Health Care Education/Training Program; ATTEND Hospitalist
PROC: 0D758ZZ Dilation of Esophagus, Via Natural or Artificial Opening Endoscopic (ICD-10-PCS; principal; 2017-05-31 10:00)
PROC: 0DH63UZ Insertion of Feeding Device into Stomach, Percutaneous Approach (ICD-10-PCS; principal; 2017-05-31 10:00)
DX: T85.528A Displacement of other gastrointestinal prosthetic devices, implants and grafts, initial encounter (principal); F89 Unspecified disorder of psychological development; R13.19 Other dysphagia; E43 Unspecified severe protein-calorie malnutrition; G40.909 Epilepsy, unspecified, not intractable, without status epilepticus; H54.7 Unspecified visual loss; F32.9 Major depressive disorder, single episode, unspecified; H35.52 Pigmentary retinal dystrophy
CPT/HCPCS: 43246; 43249; 99285; G0378; C1726; J1100; J2405; J2704; J3010

== ENCOUNTER 2017-07-16 08:12 | Inpatient (IN) | payer MEDICAID ==
--- NOTE | 2017-07-16 08:17 | EDPHY ---
HPI/HX/ROS/PE/MDM Narrative: CHIEF COMPLAINT: Seizures, altered from baseline HPI: This patient is a 27 year-old female with history of a neurodegenerative disorder and associated seizure disorder arriving via EMS from [facility] for evaluation of frequent seizures and productive cough. She was admitted 01/02/17 for pneumonia which presented with similar symptoms. Per EMS report, staff at [facility] reported the patient had three seizures in the last day and that they have noted a decrease in her activity from baseline. She is generally flaccid and nonverbal, but staff report decreased responsiveness. She has needed 5LPM of oxygen to maintain 90% SpO2, increased to 6L by EMS during transport. Her vitals were otherwise within normal limits. Additionally, EMS crews state staff at [facility] reported a recent quarantine due to influenza outbreak at the facility. Further HPI unobtainable due to patient's neurodegenerative disorder baseline state. REVIEW OF SYSTEMS: Unable to obtain. PMH: 1. Neurodegenerative disease, followed by [facility] 2. Intractable seizures requiring multiple antiepileptic medications 3. Retinitis pigmentosa with resulting blindness 4. Dysphagia s/p PEG tube placement 5. History of recurrent pneumonia. SOCIAL HISTORY: Lives at [facility]. Nonsmoker, no drug or alcohol use. Past medical records reviewed including admission 01/02/17 for pneumonia. PHYSICAL EXAM: General:Patient is lying in bed, appears responsive to pain. ENT:Eyes are normal to inspection. ENT inspection normal. Neck: Normal inspection. Full range of motion. Respiratory: On nasal canula oxygen, no respiratory distress. Lung sounds present bilaterally. Cardiovascular: Regular rate and rhythm. Strong peripheral pulses. Normal cap refill. Abdomen:The abdomen is nontender to palpation. There are no peritoneal signs. There are normal bowel sounds. Back: Normal to inspection. No tenderness to palpation. Skin: Normal color. No rash. Warm and dry. Extremities: Normal appearance. Full range of motion. Neuro: Lying in bed with mouth open. Responsive to pain. ED Course: 27 year-old female with history of a neurodegenerative disorder and associated seizure disorder presents for evaluation of multiple seizures and productive cough. Exam reveals the patient around baseline mental status, lying in bed with mouth open, responsive to pain. Breath sounds are present bilaterally. Plan for EKG, chest x-ray. IV established. Plan for labs including CBC, BMP, lactic acid, flu swab. Plan to administer 1L IV NS. Laboratory studies reviewed. Lactic acid negative. CBC within normal limits, WBC is not elevated at this time. Chemistries and flu test pending at this time. 08:49 Reviewed chest x-ray. Evidence of left-sided upper lobe infiltrate. 08:52 EKG was ordered and interpreted by myself. Please see [facility] [employer] system for official reading. EKG shows worsening of the patient's chronic T-wave inversion. Sinus rhythm, rate 58. Plan for additional laboratory studies including Troponin, BNP. Troponin negative. BNP elevated at 703. 09:[address] Troncoso, hospitalist. He accepts admission to med/surg for pneumonia, hypoxemia, neurodegenerative disorder. 09:[address] Troncoso. He has evaluated the patient and she will be transferred to the floor for further evaluation and care. I have deferred antibiotics as WBC and lactate are normal. - Data Points Imaging Results: Imaging Impressions Chest X-Ray 07/16/17 08:21 Impression: Increase in opacification in the left lung which could represent atelectasis and/or pneumonia. Poor inspiratory effort. Chest/Thorax CTA 07/16/17 09:22 Impression: 1. No definite evidence of thrombopulmonary embolic disease. Mild limitation with motion artifact. 2. Left lower lobe and left upper lobe pneumonia. Results called and discussed with Mik Win MD on July 16, 2017 at 1027 hours. Imaging: I viewed and interpreted images myself Laboratory Results: Laboratory Results 07/16/17 08:28 07/16/17 08:28 07/16/17 07/16/17 07/16/17 08:40 08:30 08:28 WBC RBC Hgb Hct MCV MCH MCHC RDW Plt Count MPV Neut % (Auto) Lymph % (Auto) Baxter % (Auto) Eos % (Auto) Baso % (Auto) Nucleat RBC Rel Count Absolute Neuts (auto) Absolute Lymphs (auto) Absolute Monos (auto) Absolute Eos (auto) Absolute Basos (auto) Absolute Nucleated RBC Immature Gran % Immature Gran # VBG Lactic Acid Sodium Potassium Chloride Carbon Dioxide Anion Gap BUN Creatinine Estimated GFR Glucose Calcium Phosphorus 3.4 mg/dL mg/dL (2.5-4.5) Magnesium 1.9 mg/dL mg/dL (1.6-2.3) Troponin I 0.026 ng/mL ng/mL (0.000-0.034) NT-Pro-B Natriuret Pep 703 pg/mL H pg/mL (0-125) Procalcitonin Nasal Influenza A PCR NEGATIVE FOR FLU A (NEGATIVE) Nasal Influenza B PCR NEGATIVE FOR FLU B (NEGATIVE) 07/16/17 07/16/17 07/16/17 08:28 08:28 08:28 WBC 7.17 10^3/uL 10^3/uL (3.80-9.50) RBC 4.81 10^6/uL 10^6/uL (4.18-5.33) Hgb 14.6 g/dL g/dL (12.6-16.3) Hct 44.2 % % (38.0-47.0) MCV 91.9 fL fL (81.5-99.8) MCH 30.4 pg pg (27.9-34.1) MCHC 33.0 g/dL g/dL (32.4-36.7) RDW 12.3 % % (11.5-15.2) Plt Count 150 10^3/uL 10^3/uL (150-400) MPV 10.6 fL fL (8.7-11.7) Neut % (Auto) 63.4 % % (39.3-74.2) Lymph % (Auto) 28.6 % % (15.0-45.0) Baxter % (Auto) 7.3 % % (4.5-13.0) Eos % (Auto) 0.0 % L % (0.6-7.6) Baso % (Auto) 0.3 % % (0.3-1.7) Nucleat RBC Rel Count 0.0 % % (0.0-0.2) Absolute Neuts (auto) 4.55 10^3/uL 10^3/uL (1.70-6.50) Absolute Lymphs (auto) 2.05 10^3/uL 10^3/uL (1.00-3.00) Absolute Monos (auto) 0.52 10^3/uL 10^3/uL (0.30-0.80) Absolute Eos (auto) 0.00 10^3/uL L 10^3/uL (0.03-0.40) Absolute Basos (auto) 0.02 10^3/uL 10^3/uL (0.02-0.10) Absolute Nucleated RBC 0.00 10^3/uL 10^3/uL (0-0.01) Immature Gran % 0.4 % % (0.0-1.1) Immature Gran # 0.03 10^3/uL 10^3/uL (0.00-0.10) VBG Lactic Acid Sodium 141 mEq/L mEq/L (134-144) Potassium 3.8 mEq/L mEq/L (3.5-5.2) Chloride 106 mEq/L mEq/L (97-110) Carbon Dioxide 24 mEq/l mEq/l (22-31) Anion Gap 11 mEq/L mEq/L (8-16) BUN 10 mg/dL mg/dL (7-23) Creatinine 0.6 mg/dL mg/dL (0.6-1.0) Estimated GFR > 60 Glucose 76 mg/dL mg/dL (70-100) Calcium 9.2 mg/dL mg/dL (8.5-10.4) Phosphorus Magnesium Troponin I NT-Pro-B Natriuret Pep Procalcitonin 0.02 ng/mL ng/mL (0.02-0.10) Nasal Influenza A PCR Nasal Influenza B PCR 07/16/17 08:28 WBC RBC Hgb Hct MCV MCH MCHC RDW Plt Count MPV Neut % (Auto) Lymph % (Auto) Baxter % (Auto) Eos % (Auto) Baso % (Auto) Nucleat RBC Rel Count Absolute Neuts (auto) Absolute Lymphs (auto) Absolute Monos (auto) Absolute Eos (auto) Absolute Basos (auto) Absolute Nucleated RBC Immature Gran % Immature Gran # VBG Lactic Acid 1.1 mmol/L mmol/L (0.7-2.1) Sodium Potassium Chloride Carbon Dioxide Anion Gap BUN Creatinine Estimated GFR Glucose Calcium Phosphorus Magnesium Troponin I NT-Pro-B Natriuret Pep Procalcitonin Nasal Influenza A PCR Nasal Influenza B PCR Medications Given: Discontinued Medications Sodium Chloride (Ns) 1,000 mls @ 0 mls/hr IV ONCE ONE; Wide Open PRN Reason: Protocol Stop: 07/16/17 08:22 Last Admin: 07/16/17 08:33 Dose: 1,000 mls General Initial Vital Signs: Initial Vital Signs Temperature (C) 37.3 C 07/16/17 08:20 Heart Rate 59 L 07/16/17 08:20 Respiratory Rate 16 07/16/17 08:20 Blood Pressure 96/64 L 07/16/17 08:20 O2 Sat (%) 95 07/16/17 08:20 O2 Delivery Mode Nasal Cannula O2 (L/minute) 4 Allergies/Adverse Reactions: lorazepam Allergy (Verified 01/02/17 19:31) Other-Enter Comments cantaloupe Allergy (Uncoded 01/02/17 19:31) Home Medications: Medication Instructions Recorded Acetaminophen [Tylenol ES 500 mg 1,000 mg TUBE Q8HRS PRN 01/02/17 (*)] Calcium Carbonate [Tums 500MG (*)] 500 mg TUBE BID 01/02/17 Divalproex [Depakote Sprinkle 125 625 mg TUBE BID 01/02/17 MG (*)] Ipratropium/Albuterol [Duoneb (*)] 3 ml NEB Q4HRS PRN 01/02/17 Midazolam HCl/Pf [Midazolam HCl 5 1 ml EACHNARE DAILY PRN 01/02/17 mg/ml Vial] OLANZapine [Zyprexa] 10 mg TUBE DAILY 01/02/17 Zonisamide [Zonegran 100MG (*)] 100 mg TUBE BID 01/02/17 levOCARNitine (WITH SUGAR) 2 ml TUBE BID 01/02/17 [Levocarnitine 1 G/10 ml Soln] Ergocalciferol [Vitamin D2 (*)] 50,000 unit TUBE SA 05/31/17 Lactobacil 2-S.thermo-Bifido 1 1 each TUBE DAILY 05/31/17 [Vsl#3 Packet] Lipase 12,000/Amylase/Protease 1 cap TUBE TID 05/31/17 [Creon 12 (*)] Nystatin Powder [Mycostatin Powder] 1 tiffanie TP TID 05/31/17 Pregabalin [Lyrica 50mg (*)] 100 mg TUBE BID 05/31/17 lamoTRIgine [LamICTAL 100 MG (*)] 200 mg TUBE BID 05/31/17 Docusate Sodium [Docu Liquid] 100 mg TUBE BID 07/16/17 FLUoxetine [Fluoxetine Liquid] 10 mg TUBE DAILY 07/16/17 Departure - Departure Disposition: [facility] Acute Clinical Impression: Hypoxemia, Ricco's disease Pneumonia Qualifiers: Pneumonia type: due to unspecified organism Laterality: left Lung location: upper lobe of lung Qualified Code(s): J18.1 - Lobar pneumonia, unspecified organism Report Scribed for: Mik Win Report Scribed by: Yuli Allison Date of Report: 07/16/17 Time of Report: 08:31 Physician Review and Approval Statement: Portions of this note were transcribed by an ED scribe. I personally performed the history, physical exam, and medical decision making; and confirm the accuracy of the information in the transcribed note.
[2017-07-16] MEDS ORDERED: NS 1,000 ML IV ONE (08:21)
[2017-07-16 08:33] LABS: PLATELET COUNT 150 10^3/uL (150-400)
--- NOTE | 2017-07-16 08:52 | CPEKG ---
Heart Rate: 58 RR Interval: 1034 P-R Interval: 156 QRSD Interval: 98 QT Interval: 428 QTC Interval: 421 P [place]: 30 QRS [place]: 50 T Wave [place]: 214 EKG Severity - ABNORMAL ECG - EKG Impression: SINUS RHYTHM EKG Impression: REPOL ABNRM SUGGESTS ISCHEMIA, ANT-LAT LEADS Electronically Signed By: Austin Godoy 17-Jul-2017 20:29:27
[2017-07-16] MEDS ORDERED: IOPAMIDOL (ISOVUE 370) 100 ML BTL IV ONE (09:34)
[2017-07-16] MEDS ORDERED: ACETAMINOPHEN 325 MG TAB PO PRN (10:38)
[2017-07-16] MEDS ORDERED: LORazepam 2 MG/ML INJ IVP PRN (10:38)
[2017-07-16] MEDS ORDERED: ONDANSETRON 4 MG/2 ML VIAL IVP PRN (10:38)
[2017-07-16] MEDS ORDERED: ONDANSETRON DISINTEGRATING 4 MG TAB PO PRN (10:38)
--- NOTE | 2017-07-16 11:12 | GHP ---
[f rep st] HISTORY AND PHYSICAL DATE OF ADMISSION: 07/16/2017 CHIEF COMPLAINT: Seizures and altered mental status from baseline. HISTORY OF PRESENT ILLNESS: This is a 27-year-old female with a history of a neurodegenerative disor marcia associated with frequent seizures, dysphagia which has necessitated a PEG tube for some time, pre sents today from [facility] with a report that she has decreased responsiveness and increasingly hypo xic. 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 She was also seen in 12/2016 for pneumonia and treated appropriately, and then seen in 05/2017 after a PEG tube was dislodged. She presents today with altered mental status and i ncreasing hypoxemia. Her normal degree of responsiveness is that she is blind and nonverbal, although I do not know the be st level of interaction she can develop. Her previous O2 needs have been listed as low as 3 L, altho ugh on the interagency discharge form from 05/29/2017, O2 needs are not specified. Regarding her seizure disorder, she has a neurodegenerative condition which has resulted in severe ep ileptic encephalopathy type picture. Per Neurology of 12/27/2016, she has drug-resistant epilepsy an d is being managed by the [facility] epilepsy experts. She is also blind secondary to retinitis pigmentosa. There has been intermittent severe bradycardia. The patient is immobile, bed bound and chair bound , and a resident of [facility]. Regarding the patient's ongoing care, a Palliative Care consult was performed on 12/27/2016. The [facility] her, who has power of manager servicing, noted that she felt that there was still more to treat her and that s he could still improve. She felt that [facility] did not give her all the care that she needed and t his resulted in her multiple hospitalizations. The mother was attempting to move her to a facility c loser to her home and research other modalities for her care. The results of the consultation were t hat care would continue as it was and the patient would continue to be a full code. PAST MEDICAL HISTORY: 1. 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 Fagan at the [facility]. 2. Intractable seizures requiring multiple antiepileptic medications. 3. 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 4. Long-term dysphagia and status post PEG tube placement. 5. History of prior pneumonias. REVIEW OF SYSTEMS: The remainder of the review of systems is negative, as best as can be defined. T he patient cannot give any history, and this is the complete information that I have at this time fro m EMS and from [facility]. Past medical records have been reviewed through 2016. Most notably they include an admission for [facility] on 01/02/2017, and a Palliative Care consult during that hospitalization. SOCIAL HISTORY: The patient lives at [facility]. She is a nonsmoker. No drugs or alcohol. CURRENT MEDICATIONS: Are included in the EMR, and include Tylenol, calcium, Depakote, vitamin D, Pro gabbie, DuoNeb, a probiotic, Lamictal, levocarnitine, lipase, amylase and protease capsules, midazolam, nystatin powder, Zyprexa, Lyrica, senna and Zonegran. The medications will be reconciled when availa ble. FAMILY HISTORY: Unobtainable from the patient and not noted at this time in the EMR. Per review of the EMR, there is no significant family history of note. PHYSICAL EXAMINATION: GENERAL: This is a young female who moans only when disturbed and will withdr aw from pain. She does not answer questions or respond visually or verbally. VITAL SIGNS: She was initially hypotensive at 96/64, but pressure kevin with some fluid to 108/68. She is afebrile and req uiring 4-5 L of oxygen for oxygenation. Heart rate is in the 50s regular and in sinus rhythm on the monitor. HEENT: Shows that the scalp and face are atraumatic. TMs are occluded with cerumen and ca nnot be seen. Mouth shows no signs of trauma on the tongue, buccal mucosal or lips, and no signs of bleeding to suggest a seizure. Posterior oropharynx is clear, without erythema or exudate. Nasal ca nnulas are clear also. NECK: Supple, without meningismus. No significant adenopathy is appreciated in the cervical, axillary or inguinal region. CHEST WALL: Appears nontender and atraumatic. LUNGS : She has normal inspiratory excursion at rest. Breath sounds are poor, hard to determine as she wo uld not take a deep breath, although appeared clear. HEART: Regular rate and rhythm and bradycardic sinus rhythm on the monitor. Normal S1. Physiologically split S2. A soft systolic murmur is heard at 2/6 at the apex of the heart, without significant radiation. ABDOMEN: Slightly overweight. PEG tube in place. Normoactive bowel sounds. No masses, tenderness or organomegaly. INGUINAL REGION: Shows no rash or skin breakdown. EXTREMITIES: No edema, cyanosis or clubbing. NEUROLOGIC: A moan ing female responsive only to pain. She does not respond to visual or verbal stimuli. Cranial nerve s grossly appear intact, although she has dysconjugate gaze. The pupils are PERRL. EOMs could not b e assessed. Face is grossly symmetrical. Shoulder shrug could not be assessed. She had a good gag bilaterally. Tongue was in the midline. Babinski's were withdrawal and appeared to be upgoing. LABORATORY: CBC is entirely normal, with a hemoglobin of 14.6. Lactate is 1.1. Chemistry panel is normal, with normal renal function. A procalcitonin is pending. She is negative for influenza A and B. two blood cultures are pending. IMAGING: A CTA of the chest, to my reading, confirms the finding of a left upper lobe infiltrate. N o significant pulmonary emboli are noted. The CT scan will be reviewed with Radiology. ECG reveals a sinus bradycardia at 58. [place] and QRS intervals are normal. QT interval is normal. There is a slig ht repolarization abnormality with T-wave inversion across the precordium in the anterior lateral floyd ds. The ECG is abnormal, but shows no acute findings and no changes of ischemia. Chest x-ray reveal s findings of a probable left upper lobe infiltrate and an elevated left hemidiaphragm. The right moon ng appears clear. ASSESSMENT AND PLAN: 1. Acute left upper lobe pneumonia, considered a healthcare facility acquired pneumonia, and to be t reated appropriately with Zosyn q.6 hours. ID consultation will be obtained. Will continue the usua l pulmonary care of bronchodilators. Steroids will not be necessary at this point, as I do not detec t significant bronchospasm. 2. Seizures, noted to be intractable in previous admissions. Will continue her usual outpatient ant iepileptic medication and treat acute seizures with IV Ativan as needed. 3. Bradycardia. This has been noted on previous admissions and felt either secondary to her neurode generative disease possibly interrelating with her seizure disorder, and may at times be related to g astric feedings. In a previous cardiac consultation, the question was raised as to whether a pacemak er should be placed for bradycardia, but was felt to be an adverse risk in light of the regular manip ulation of the PEG tube and the possible thus bacterial seeding of the pacemaker leads. Thus, her br adycardia is to be tolerated and, if it is an aspect of her seizures, it then was felt that it would have to be tolerated as the risk outweighed the benefit. 4. 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 Will continue our usual antiseizure protocols. 5. Code status: Full code, per the palliative care consult in 12/2016. 6. Deep venous thrombosis prophylaxis will be with Lovenox. The power of manager servicing is the patient's mother. /[id number]/MODL
--- NOTE | 2017-07-16 11:38 | PDMN ---
Medical Necessity Medical necessity: C/M review: est. 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
[2017-07-16] MEDS: NS W/ 20 KCl/L 1,000 ML IV SCH ×2 (11:39→20:26)
[2017-07-16] MEDS: PIPERACILLIN/TAZO 4.5 GM/DEX 100 ML IV SCH ×3 (11:39→23:31)
[2017-07-16] MEDS ORDERED: IPRATROPIUM/ALBUTEROL 3 ML DEYVIAL IH SCH (14:00)
[2017-07-16] MEDS ORDERED: MIDAZOLAM 10 MG/2 ML VIAL IV PRN (15:09)
[2017-07-16] MEDS ORDERED: ACETAMINOPHEN 500 MG TAB TUBE PRN (15:09)
[2017-07-16] MEDS ORDERED: IPRATROPIUM/ALBUTEROL 3 ML DEYVIAL NEB PRN (15:09)
--- NOTE | 2017-07-16 16:22 | ASMTCMCOM ---
CM Note CM Note Notes: Patient admitted for pneumonia, decreased responsiveness, increasing hypoxemia and bradycardia. 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 Fagan at [facility]), blindness, dysphagia (pt has a PEG tube), and intractable seizures. Patient is immobile and bed bound. Patient's MDPOA is her mother, Akua Alvarez, and per MD report, she is concerned about pt's care at and is looking to have patient transferred to a different facility closer to her in [place]. Patient was seen at [facility] in December 2016 and received a Palliative Care consult at that time. Anticipate patient return to [facility] or be discharged to a different LTC facility closer to pt's mother in [place]. Exact DC needs unknown at this time, CM to follow. Date Signed: 07/16/2017 04:22 PM Electronically Signed By:Oxana Flowers RN
[2017-07-16] MEDS ORDERED: ACETAMINOPHEN 650 MG/20.3 ML UDCUP TUBE PRN (17:00)
[2017-07-16] MEDS: FLUoxetine 10 MG CAP TUBE SCH (17:25)
[2017-07-16] MEDS: NYSTATIN POWDER 15 GM BTL TP SCH ×2 (17:37→21:36)
[2017-07-16] MEDS: LIPASE 12,000/AMYLASE/PROTEASE (CREON) 1 CAP TUBE SCH ×2 (17:58→20:07)
[2017-07-16] MEDS: lamoTRIgine 100 MG TAB TUBE SCH (20:18)
[2017-07-16] MEDS: ZONISAMIDE 100 MG CAP TUBE SCH (20:18)
[2017-07-16] MEDS: [UNRECOGNIZED DRUG - OTHER] TUBE SCH (20:18)
[2017-07-16] MEDS: VALPROIC ACID 250 MG/5 ML UDCUP TUBE SCH (20:18)
[2017-07-16] MEDS: PREGABALIN 100 MG CAP TUBE SCH (20:18)
[2017-07-16] MEDS: LEVOCARNITINE TUBE SCH (20:18)
[2017-07-16] MEDS ORDERED: CALCIUM CARBONATE 500 MG CHEWABLE TAB PO SCH (21:00)
[2017-07-16] MEDS ORDERED: DIVALPROEX NA 125 MG CAP.SPRINKLE PO SCH (21:00)
[2017-07-16] MEDS ORDERED: DOCUSATE SODIUM 100 MG TUBE SCH (21:00)
[2017-07-16] MEDS: IPRATROPIUM/ALBUTEROL 3 ML DEYVIAL IH SCH (21:24)
[2017-07-17] MEDS: PIPERACILLIN/TAZO 4.5 GM/DEX 100 ML IV SCH ×4 (05:20→23:20)
[2017-07-17 05:26] LABS: PLATELET COUNT 109 10^3/uL (150-400)
[2017-07-17] MEDS: IPRATROPIUM/ALBUTEROL 3 ML DEYVIAL IH SCH ×4 (05:48→20:38)
[2017-07-17] MEDS ORDERED: LACTOBACIL TUBE SCH (09:00)
[2017-07-17] MEDS ORDERED: [UNRECOGNIZED DRUG - OTHER] TUBE SCH (09:00)
[2017-07-17] MEDS: VALPROIC ACID 250 MG/5 ML UDCUP TUBE SCH ×2 (10:19→21:03)
[2017-07-17] MEDS: OLANZapine 10 MG TAB TUBE SCH (10:20)
[2017-07-17] MEDS: lamoTRIgine 100 MG TAB TUBE SCH ×2 (10:20→21:03)
[2017-07-17] MEDS: PREGABALIN 100 MG CAP TUBE SCH ×2 (10:21→21:03)
[2017-07-17] MEDS: ZONISAMIDE 100 MG CAP TUBE SCH ×2 (10:21→21:03)
[2017-07-17] MEDS: ENOXAPARIN 40 MG/0.4 ML SYR SC SCH (10:22)
[2017-07-17] MEDS: FLUoxetine 10 MG CAP TUBE SCH (10:22)
[2017-07-17] MEDS: NYSTATIN POWDER 15 GM BTL TP SCH ×3 (10:25→21:03)
[2017-07-17] MEDS: [UNRECOGNIZED DRUG - OTHER] TUBE SCH ×2 (10:26→21:12)
[2017-07-17] MEDS: LEVOCARNITINE TUBE SCH ×2 (10:26→21:12)
[2017-07-17] MEDS: LIPASE 12,000/AMYLASE/PROTEASE (CREON) 1 CAP TUBE SCH ×3 (11:14→21:12)
--- NOTE | 2017-07-17 14:11 | HOSPPROG ---
Hospitalist Progress Note Assessment/Plan: 27y female with SOB and cough. First encounter, chart reviewed. D/W Dr Gomez. #PNA treated for health care aquired, D/W Dr Gomez cont abx per his recs #SZ none since admission cont home meds #Bradycardia likely related to neuro disorder or possible feedings stable, asymptomatic #Neuro disorder at baseline #Dysphagia chronic aspiration PEG #Dispo cont supportive care cont abx Subjective: Nonverbal, alert. No interaction. Objective: Vital Signs Temp Pulse Resp BP Pulse Ox 36.5 C 59 L 18 87/46 L 95 07/17/17 11:51 07/17/17 11:51 07/17/17 11:51 07/17/17 11:51 07/17/17 11:51 Laboratory Results 07/17/17 05:09 07/17/17 05:09 07/16/17 07/17/17 07/18/17 05:59 05:59 05:59 Intake Total 1825 Output Total 1085 Balance 740 - Physical Exam Constitutional: no apparent distress, appears nourished, chronically ill appearing Eyes: PERRL, anicteric sclera, EOMI Ears, Nose, Mouth, Throat: moist mucous membranes, ears appear normal, dry mucous membranes Cardiovascular: bradycardia, No JVD, No edema Respiratory: no respiratory distress, reduced air movement, rhonchi Gastrointestinal: other (PEG), No tenderness, No ascites Skin: warm, normal color, No mottled Musculoskeletal: no joint effusions, generalized weakness, No normal joint ROM Neurologic: No AAOx3 Psychiatric: not anxious, encephalopathic, No thought process linear ICD10 Worksheet Patient Problems: Problems Problem Status Onset Ricco's disease Acute Hypoxemia Acute Pneumonia Acute Bradycardia Acute Bradycardia, sinus Acute Encephalopathy Acute Gastrostomy tube dysfunction Acute Lethargy Acute Palliative care encounter Acute Seizure Acute Seizure disorder Acute Sepsis Acute
--- NOTE | 2017-07-17 14:55 | ASMTCMCOM ---
CM Note CM Note Notes: PT has been ordered for patient. D/C plan remains return to [facility] at this time. CM will follow. Date Signed: 07/17/2017 02:54 PM Electronically Signed By:Dalila Briseno LCSW
[2017-07-17] MEDS: NS W/ 20 KCl/L 1,000 ML IV SCH (15:44)
--- NOTE | 2017-07-17 17:15 | PCMIDPN ---
Assessment/Plan: Assessment/Plan: * Left upper lobe/left lower lobe pneumonia: Most likely etiology is aspiration given underlying history of dysphagia and neuro degenerative disorder. Normal white blood cell count and procalcitonin raise possibility that findings are all related to chemical pneumonitis. Given CT findings with dense consolidation, will plan treatment with Zosyn times 5 days in event bacterial organisms contributing. * Positive blood culture: 1/2 sets with coagulase-negative Staphylococcus consistent with contamination. No targeted antibiotic therapy required. 07/17/17 17:11 07/17/17 17:17 Subjective: Asked by Dr. Troncoso to see patient for pneumonia. Patient seen by access disease service in 2016 for aspiration pneumonia. Patient is nonverbal with underlying neuro degenerative disease and blindness who was noted at [facility] facility to have decreased level of responsiveness and hypoxia prompting evaluation in the emergency department. CT scan of the chest shows left upper and left lower lobe pneumonia. This has been reviewed with Radiology without findings to suggest significant mucous plugging. Patient was started empirically on Zosyn given residence in [facility] facility. Objective: Vital Signs Temp Pulse Resp BP Pulse Ox 36.7 C 55 L 17 107/60 95 07/17/17 15:58 07/17/17 15:58 07/17/17 15:58 07/17/17 15:58 07/17/17 15:58 Laboratory Results 07/17/17 05:09 07/17/17 05:09 07/16/17 07/17/17 07/18/17 05:59 05:59 05:59 Intake Total 1825 Output Total 1085 250 Balance 740 -250 Zosyn # 2 Blood cultures 1/2 sets coagulase-negative Staphylococcus CT scan with left upper and left lower lobe pneumonia which was reviewed and interpreted by me with Radiology today. Laboratory Tests 07/16/17 07/16/17 08:28 08:40 Procalcitonin 0.02 Nasal Influenza A PCR NEGATIVE FOR FLU A Nasal Influenza B PCR NEGATIVE FOR FLU B - Physical Exam General Appearance: no apparent distress, non-toxic EENT: No scleral icterus Respiratory: coarse breath sounds Cardiac/Chest: bradycardia Abdomen: non-tender, other (G-tube without erythema or drainage), No distended Neuro/Psych: other (No interaction with examiner) ICD10 Worksheet Patient Problems: Problems Problem Status Onset Ricco's disease Acute Hypoxemia Acute Pneumonia Acute Bradycardia Acute Bradycardia, sinus Acute Encephalopathy Acute Gastrostomy tube dysfunction Acute Lethargy Acute Palliative care encounter Acute Seizure Acute Seizure disorder Acute Sepsis Acute
[2017-07-18] MEDS: PIPERACILLIN/TAZO 4.5 GM/DEX 100 ML IV SCH ×4 (05:19→23:12)
[2017-07-18] MEDS: IPRATROPIUM/ALBUTEROL 3 ML DEYVIAL IH SCH ×4 (05:24→21:47)
[2017-07-18 05:31] LABS: PLATELET COUNT 97 10^3/uL (150-400)
[2017-07-18] MEDS: VALPROIC ACID 250 MG/5 ML UDCUP TUBE SCH ×2 (09:00→20:32)
[2017-07-18] MEDS: lamoTRIgine 100 MG TAB TUBE SCH ×2 (09:00→20:32)
[2017-07-18] MEDS: PREGABALIN 100 MG CAP TUBE SCH ×2 (09:00→20:32)
[2017-07-18] MEDS: ZONISAMIDE 100 MG CAP TUBE SCH ×2 (09:00→20:32)
[2017-07-18] MEDS: OLANZapine 10 MG TAB TUBE SCH (09:01)
[2017-07-18] MEDS: NYSTATIN POWDER 15 GM BTL TP SCH ×3 (09:01→20:34)
[2017-07-18] MEDS: FLUoxetine 10 MG CAP TUBE SCH (09:01)
[2017-07-18] MEDS: [UNRECOGNIZED DRUG - OTHER] TUBE SCH ×2 (09:02→20:47)
[2017-07-18] MEDS: LEVOCARNITINE TUBE SCH ×2 (09:02→20:47)
[2017-07-18] MEDS: LIPASE 12,000/AMYLASE/PROTEASE (CREON) 1 CAP TUBE SCH ×3 (09:17→20:46)
[2017-07-18] MEDS: ENOXAPARIN 40 MG/0.4 ML SYR SC SCH (10:24)
--- NOTE | 2017-07-18 13:05 | HOSPPROG ---
Hospitalist Progress Note Assessment/Plan: 27y female with SOB and cough. #PNA treated for health care aquired, [place] #3/5 cont abx per his recs #SZ none since admission cont home meds #Bradycardia likely related to neuro disorder or possible feedings stable, asymptomatic #Neuro disorder at baseline #Dysphagia chronic aspiration PEG #Dispo cont supportive care cont abx Subjective: Alert, moves eyes. No other interaction. Objective: Vital Signs Temp Pulse Resp BP Pulse Ox 36.6 C 58 L 16 91/61 L 97 07/18/17 11:11 07/18/17 11:17 07/18/17 11:17 07/18/17 11:11 07/18/17 11:17 Laboratory Results 07/18/17 04:59 07/18/17 04:59 07/17/17 07/18/17 07/19/17 05:59 05:59 05:59 Intake Total 1825 2100 Output Total 1085 1300 Balance 740 800 - Physical Exam Constitutional: appears nourished, chronically ill appearing Eyes: PERRL, anicteric sclera Ears, Nose, Mouth, Throat: moist mucous membranes, hearing normal Cardiovascular: No JVD, No edema Respiratory: no respiratory distress, reduced air movement Gastrointestinal: No tenderness, No ascites Skin: warm, normal color Musculoskeletal: no joint effusions, pain with ROM, No normal joint ROM Neurologic: No AAOx3 Psychiatric: encephalopathic ICD10 Worksheet Patient Problems: Problems Problem Status Onset Encephalopathy Acute Bradycardia, sinus Acute Seizure disorder Acute Pneumonia Acute Sepsis Acute Ricco's disease Acute Lethargy Acute Bradycardia Acute Seizure Acute Palliative care encounter Acute Gastrostomy tube dysfunction Acute Hypoxemia Acute
[2017-07-18] MEDS: NS W/ 20 KCl/L 1,000 ML IV SCH (14:56)
[2017-07-19] MEDS: PIPERACILLIN/TAZO 4.5 GM/DEX 100 ML IV SCH ×2 (04:59→12:22)
[2017-07-19] MEDS: IPRATROPIUM/ALBUTEROL 3 ML DEYVIAL IH SCH ×2 (05:17→12:05)
[2017-07-19] MEDS: lamoTRIgine 100 MG TAB TUBE SCH (08:15)
[2017-07-19] MEDS: ZONISAMIDE 100 MG CAP TUBE SCH (08:17)
[2017-07-19] MEDS: PREGABALIN 100 MG CAP TUBE SCH (08:17)
[2017-07-19] MEDS: FLUoxetine 10 MG CAP TUBE SCH (08:17)
[2017-07-19] MEDS: OLANZapine 10 MG TAB TUBE SCH (08:18)
[2017-07-19] MEDS: VALPROIC ACID 250 MG/5 ML UDCUP TUBE SCH (08:18)
[2017-07-19] MEDS: [UNRECOGNIZED DRUG - OTHER] TUBE SCH (09:20)
[2017-07-19] MEDS: LEVOCARNITINE TUBE SCH (09:20)
[2017-07-19] MEDS: LIPASE 12,000/AMYLASE/PROTEASE (CREON) 1 CAP TUBE SCH (09:30)
[2017-07-19] MEDS: NYSTATIN POWDER 15 GM BTL TP SCH (09:32)
--- NOTE | 2017-07-19 10:24 | PCMIDPN ---
Assessment/Plan: Assessment: Left lower lobe and left upper lobe pneumonia by CT scan. Patient never had a leukocytosis but white blood cell count is decreased with empiric Zosyn therapy. Presenting symptom was hypoxia. Agree that this is likely an aspiration event given her underlying progressive neurologic disease. Plan to continue her monotherapy with Zosyn for 5-7 days and then discontinue. Plan: 1. Continue Zosyn at current dose. 2. Follow physical exam and clinical appearance. 07/19/17 10:21 Subjective: Patient is resting in her hospital bed. She is snoring. She is not significantly arousable. No fevers recorded. Objective: Zosyn # 3 Vital Signs Temp Pulse Resp BP Pulse Ox 36.8 C 54 L 20 127/67 H 96 07/19/17 07:38 07/19/17 07:38 07/19/17 07:38 07/19/17 07:38 07/19/17 07:38 Laboratory Results 07/18/17 04:59 07/18/17 04:59 07/18/17 07/19/17 07/20/17 05:59 05:59 05:59 Intake Total 2100 3560 Output Total 1300 2750 Balance 800 810 - Physical Exam General Appearance: WD/WN, no apparent distress, non-toxic, No alert Respiratory: No lungs clear, No normal breath sounds (Upper airway sounds reflective all angela.), No crackles, No wheezing, No coarse breath sounds Cardiac/Chest: regular rate, rhythm, No bradycardia, No tachycardia Extremities: normal inspection Skin: normal color, warm/dry, No rash ICD10 Worksheet Patient Problems: Problems Problem Status Onset Ricco's disease Acute Hypoxemia Acute Pneumonia Acute Bradycardia Acute Bradycardia, sinus Acute Encephalopathy Acute Gastrostomy tube dysfunction Acute Lethargy Acute Palliative care encounter Acute Seizure Acute Seizure disorder Acute Sepsis Acute
[2017-07-19] MEDS: NS W/ 20 KCl/L 1,000 ML IV SCH (11:00)
--- NOTE | 2017-07-19 11:57 | HOSPPROG ---
Hospitalist Progress Note Assessment/Plan: 27y female with SOB and cough. #PNA treated for health care aquired, Zosyn #4/5 cont abx per ID recs #SZ none since admission cont home meds #Bradycardia likely related to neuro disorder or possible feedings stable, asymptomatic #Neuro disorder at baseline #Dysphagia chronic aspiration PEG #Dispo cont supportive care cont abx will need one more day of IV abx. Subjective: Alert. No interaction. Objective: Vital Signs Temp Pulse Resp BP Pulse Ox 36.6 C 56 L 20 98/50 L 95 07/19/17 11:07 07/19/17 11:07 07/19/17 11:07 07/19/17 11:07 07/19/17 11:07 Laboratory Results 07/18/17 04:59 07/18/17 04:59 07/18/17 07/19/17 07/20/17 05:59 05:59 05:59 Intake Total 2100 3560 Output Total 1300 2750 Balance 800 810 - Physical Exam Constitutional: appears nourished, chronically ill appearing Eyes: PERRL, anicteric sclera Ears, Nose, Mouth, Throat: moist mucous membranes, hearing normal Cardiovascular: No JVD, No edema Respiratory: no respiratory distress, reduced air movement Gastrointestinal: No tenderness, No ascites Skin: warm, normal color Musculoskeletal: no joint effusions, No normal joint ROM Neurologic: No AAOx3 Psychiatric: not anxious, encephalopathic, No thought process linear ICD10 Worksheet Patient Problems: Problems Problem Status Onset Encephalopathy Acute Bradycardia, sinus Acute Seizure disorder Acute Pneumonia Acute Sepsis Acute Ricco's disease Acute Lethargy Acute Bradycardia Acute Seizure Acute Palliative care encounter Acute Gastrostomy tube dysfunction Acute Hypoxemia Acute
--- NOTE | 2017-07-19 13:47 | PDIAF ---
- Diagnosis Diagnosis: PNA Code Status: Full Code - Medication Management Discharge Medications: Medications to Continue on Transfer Acetaminophen [Tylenol ES 500 mg (*)] 1,000 mg TUBE Q8HRS PRN 01/02/17 [Last Taken Unknown] Calcium Carbonate [Tums 500MG (*)] 500 mg TUBE BID 01/02/17 [Last Taken 2 DOSES] Divalproex [Depakote Sprinkle 125 MG (*)] 625 mg TUBE BID 01/02/17 [Last Taken 01/02/17 2 doses] Ipratropium/Albuterol [Duoneb (*)] 3 ml NEB Q4HRS PRN 01/02/17 [Last Taken 01/02 2 DOSES] Midazolam HCl/Pf [Midazolam HCl 5 mg/ml Vial] 1 ml EACHNARE DAILY PRN 01/02/17 [ Last Taken Unknown] OLANZapine [Zyprexa] 10 mg TUBE DAILY 01/02/17 [Last Taken 01/01/17] Zonisamide [Zonegran 100MG (*)] 100 mg TUBE BID 01/02/17 [Last Taken 01/02/17 AM DOSE] levOCARNitine (WITH SUGAR) [Levocarnitine 1 G/10 ml Soln] 2 ml TUBE BID [Last Taken 01/02/17 am dose] Ergocalciferol [Vitamin D2 (*)] 50,000 unit TUBE SA 05/31/17 [Last Taken Unknown ] Lactobacil 2-S.thermo-Bifido 1 [Vsl#3 Packet] 1 each TUBE DAILY 05/31/17 [Last Taken Unknown] Lipase 12,000/Amylase/Protease [Creon 12 (*)] 1 cap TUBE TID 05/31/17 [Last Taken Unknown] Nystatin Powder [Mycostatin Powder] 1 tiffanie TP TID 05/31/17 [Last Taken Unknown] Pregabalin [Lyrica 50mg (*)] 100 mg TUBE BID 05/31/17 [Last Taken Unknown] lamoTRIgine [LamICTAL 100 MG (*)] 200 mg TUBE BID 05/31/17 [Last Taken Unknown] Docusate Sodium [Docu Liquid] 100 mg TUBE BID 07/16/17 [Last Taken Unknown] FLUoxetine [Fluoxetine Liquid] 10 mg TUBE DAILY 07/16/17 [Last Taken Unknown] Acetaminophen [Tylenol 650/20.3ML Oral Liq (*)] 650 mg TUBE Q4H PRN udcup 07/19 [Last Taken Unknown] Skilled Nursing Antibiotics: Zosyn 4.5gm [id number] Knocker Off Antibiotic Stop Date: 07/21/17 Discharge Medications: Refer to the Discharge Home Medication list for PRN reason. PICC Care - Routine: N/A - Orders Services needed: Registered Nurse, Physical Therapy, Occupational Therapy Isolation Type: None - Follow Up Care Current Providers and Referrals: KASSIE GONZALEZ [Primary Care Provider] - As per Instructions
[2017-07-19 14:18] VITALS: BP 105/53; PULSE 60; RESP 20; TEMP 98; O2SAT 95
--- NOTE | 2017-07-19 15:21 | GDS ---
[f rep st] DISCHARGE SUMMARY DISCHARGE DIAGNOSES: 1. Pneumonia, likely aspiration. 2. History of seizure disorder. 3. Chronic bradycardia. 4. Neurogenic disorder. 5. Dysphagia. CONSULTATIONS: Infectious Disease. STUDIES AND PROCEDURES DONE: CT angio of the chest. PHYSICAL EXAMINATION: GENERAL: The patient is alert. VITAL SIGNS: Afebrile at 36.6, pulse is 60, respiratory rate is 20, blood pressure is 105/53. 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 She was br ought to the emergency room secondary to shortness of breath. She was evaluated and diagnosed with: 1. Pneumonia. During this hospitalization she was initiated on Zosyn. She has received day 4 of 5 of Zosyn treatment. She received a consultation from Infectious Disease as well as a CT angio of her chest. She will continue the Zosyn at the time of disposition. 2. History of seizure disorder. She has had no seizures during this hospitalization. 3. Bradycardia. This is chronic and is multifactorial, felt likely secondary to the patient's neuro logic disorder. 4. Neurological disorder. The patient is at her baseline with regard to this condition. 5. Dysphagia. The patient chronically aspirates. She has a PEG tube in place. No further interven tion indicated at this time. 6. Disposition the patient will be discharged to return to [place] where she normally resides. T here are no pending studies. Followup will be with her primary care physician, Dr. Raymond Matson. DISCHARGE MEDICATIONS: Please refer to the EMR form. I have provided the patient with a prescriptio n for Zosyn at the time of disposition. I spent greater than 35 minutes in the care, coordination, and management of the patient's discharge. /[id number]/MODL
--- NOTE | 2017-07-19 16:55 | ASDISCHSUM ---
Discharge Information Plan Status:Hospice-SNF Medically Cleared to Leave: Discharge Date:07/19/2017 03:28 PM CM D/C Disposition:[facility] ADT D/C Disposition:[facility] Facility Projected Discharge Date:07/19/2017 11:00 AM Transportation at D/C:ALS/BLS Discharge Delay Reason: Follow-Up Date:07/19/2017 11:00 AM Discharge Slot: Final Diagnosis: Placement Information Referral Type:*Care Home/SNF Referral ID:[id number] Provider Name:Emilee Blackwellulder Address 1:[address] Address 2: City:[place] Selection Factors: State:[place] Patient Contact Information Contact Name:KRYSTIN Relationship:Mother Address:[address] Work Phone: [facility]:[employer] Alternate Phone: State/Zip Code:[place] [address] Email: Financial Information Financial Class: Primary Plan Desc:[employer] [place] Primary Plan Number:[id number] Secondary Plan Desc: Secondary Plan Number: Assessment Information LACE LACE Acuity / Level of Care Answers: Was the patient admitted to hospital via the emergency department? Yes: Emergency dept visits in Answers: 3 last 6 months Score: 6 Date Signed: 07/16/2017 04:06 PM Electronically Signed By:Oxana Flowers RN [facility] Progress Note CM Note CM Note Notes: Patient admitted for pneumonia, decreased responsiveness, increasing hypoxemia and bradycardia. 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 Fagan at [facility]), blindness, dysphagia (pt has a PEG tube), and intractable seizures. Patient is immobile and bed bound. Patient's MDPOA is her mother, Akua Alvarez, and per MD report, she is concerned about pt's care at and is looking to have patient transferred to a different facility closer to her in [place]. Patient was seen at [facility] in December 2016 and received a Palliative Care consult at that time. Anticipate patient return to [facility] or be discharged to a different LT facility closer to pt's mother in [place]. Exact DC needs unknown at this time, CM to follow. Date Signed: 07/16/2017 04:22 PM Electronically Signed By:Oxana Flowers RN [facility] CM Progress Note CM Note CM Note Notes: PT has been ordered for patient. D/C plan remains return to [facility] at this time. CM will follow. Date Signed: 07/17/2017 02:54 PM Electronically Signed By:Dalila Briseno LCSW Case Management Discharge Plan Note Case Management Discharge Discharge Order Complete? Answers: Yes Patient to Obtain Answers: Other Notes: [facility] Medications Transportation Arranged Answers: [facility] will Pick (Date 07/19/2017 03:30 PM & Time) Case Management Transport Answers: Yes Form Complete Faxed Final Orders Answers: Yes Family Notified Answers: Yes Discharge Comments Notes: D/w [employer], final oders faxed. Bakari at [facility] notified, RN to call report. CM arranged for transportation via [facility] Confirmation # [id number]. Pt's mother notified and Teresa Ceron at [facility] notified. Date Signed: 07/19/2017 03:00 PM Electronically Signed By:Bina Diaz RN Intervention Information Intervention Type:*Incorrect Registration Date of Service:07/16/2017 10:38 AM Patient Type:Inpatient Staff Member:KATHERINE Florez, Amber Hours:0.25 Discipline: Severity:1 (0-1 Hours) Comment:Registered observation, written admit order inpatient status.
[2017-07-22] MEDS ORDERED: ERGOCALCIFEROL 50,000 I.UNIT CAP PO SCH (09:00)
== END 2017-07-19 15:28 | DRG 178 ==
LOC: EDUNIT# → OBSVTOIN 10:38 → F3E 11:10
PROVIDERS: ADMIT Internal Medicine Pulmonary Disease; ATTEND Internal Medicine Pulmonary Disease
DX: J69.0 Pneumonitis due to inhalation of food and vomit (principal); G40.909 Epilepsy, unspecified, not intractable, without status epilepticus; R00.1 Bradycardia, unspecified; E75.4 Neuronal ceroid lipofuscinosis; R13.10 Dysphagia, unspecified; H54.8 Legal blindness, as defined in USA
CPT/HCPCS: J1650; J2543; Q9967

== ENCOUNTER 2017-11-06 05:54 | Emergency (ER) | payer MEDICAID ==
[2017-11-06] MEDS ORDERED: NS 1,000 ML IV ONE ×2 (06:00→07:11)
[2017-11-06] MEDS ORDERED: levETIRAcetam 1000MG/NACL 100 ML IV ONE (06:01)
--- NOTE | 2017-11-06 06:06 | EDPHY ---
H & P Stated Complaint: Sz Time Seen by Provider: 11/06/17 05:59 HPI/ROS: HPI The patient presents with multiple seizures which began earlier this morning, she is brought in by ambulance. The patient was noted to have 2 seizures at [facility] where she is a long-term resident. Each seizure lasted for slightly less than 5 min and they were 8 min apart. She was not given any medication for this. 911 was called and paramedics arrived. Patient's room air saturation was 82% on 2 L at the time. They put her on supplemental oxygen. Blood glucose was 116. She went on to have an additional 3 seizures lasting for about 30 sec at a time, each for minutes apart with no lucid interval in between. She was given Versed 2 mg IM and had no further seizures after this. She does have a seizure disorder and takes Lamictal and Depakote for this. She was admitted last to this hospital for seizures in 2016, she was noted to have a urinary tract infection at this time. She also was admitted for pneumonia. On review of her chart it seems that she may have a history of Ricco disease. REVIEW OF SYSTEMS Constitutional: No fever, no chills. Eyes: No discharge. ENT: No sore throat. Cardiovascular: No chest pain, no palpitations. Respiratory: No cough, no shortness of breath. Gastrointestinal: No abdominal pain, no vomiting. Genitourinary: No hematuria. Musculoskeletal: No back pain. Skin: No rashes. Neurological: No headache. PMHx: Possible Ricco disease, seizure disorder Soc Hx: Resides at [facility] PHYSICAL General Appearance: Obtunded, arouses to painful stimuli only Eyes: Pupils equal 5-6 mm and round no pallor or injection ENT, Mouth: Mucous membranes dry Respiratory: There are no retractions, she is on supplemental oxygen, coarse breath sounds throughout Cardiovascular: Regular rate and rhythm Gastrointestinal: Abdomen is soft and non-tender, no masses, bowel sounds normal , diaper in place Neurological: Sedate, arouses to painful stimuli, moves all extremities Skin: Warm and dry, no rashes Musculoskeletal: Neck is supple non tender Extremities: symmetrical, full range of motion Psychiatric: There is no agitation Source: EMS, long term records, Old records Exam Limitations: Clinical condition - Medical/Surgical History Hx Asthma: No Hx Chronic Respiratory Disease: No Hx Diabetes: No Hx Cardiac Disease: No Hx Renal Disease: No Hx Cirrhosis: No Hx Alcoholism: No Hx HIV/AIDS: No Hx Splenectomy or Spleen Trauma: No Other PMH: bradycardia, retinitis pigmentosa, epilepsy with progressive neurodegenerative disorder, failure to thrive, blind (sees shadows only), anorexia with severe malnutrition and PEG tube, closed fx pelvis, severe depression without psychotic features - Social History Smoking Status: Never smoked Constitutional: Initial Vital Signs Temperature (C) 36.9 C 11/06/17 06:00 Heart Rate 77 11/06/17 06:00 Respiratory Rate 22 H 11/06/17 06:00 O2 Sat (%) 85 L 11/06/17 06:00 O2 Delivery Mode Nasal Cannula O2 (L/minute) 3 Allergies/Adverse Reactions: lorazepam Allergy (Verified 01/02/17 19:31) Other-Enter Comments cantaloupe Allergy (Uncoded 01/02/17 19:31) Home Medications: Medication Instructions Recorded Acetaminophen [Tylenol ES 500 mg 1,000 mg TUBE Q8HRS PRN 01/02/17 (*)] Calcium Carbonate [Tums 500MG (*)] 500 mg TUBE BID 01/02/17 Divalproex [Depakote Sprinkle 125 625 mg TUBE BID 01/02/17 MG (*)] Ipratropium/Albuterol [Duoneb (*)] 3 ml NEB Q4HRS PRN 01/02/17 Midazolam HCl/Pf [Midazolam HCl 5 1 ml EACHNARE DAILY PRN 01/02/17 mg/ml Vial] OLANZapine [Zyprexa] 10 mg TUBE DAILY 01/02/17 Zonisamide [Zonegran 100MG (*)] 100 mg TUBE BID 01/02/17 levOCARNitine (WITH SUGAR) 2 ml TUBE BID 01/02/17 [Levocarnitine 1 G/10 ml Soln] Ergocalciferol [Vitamin D2 (*)] 50,000 unit TUBE SA 05/31/17 Lactobacil 2-S.thermo-Bifido 1 1 each TUBE DAILY 05/31/17 [Vsl#3 Packet] Lipase 12,000/Amylase/Protease 1 cap TUBE TID 05/31/17 [Creon 12 (*)] Nystatin Powder [Mycostatin Powder] 1 tiffanie TP TID 05/31/17 Pregabalin [Lyrica 50mg (*)] 100 mg TUBE BID 05/31/17 lamoTRIgine [LamICTAL 100 MG (*)] 200 mg TUBE BID 05/31/17 Docusate Sodium [Docu Liquid] 100 mg TUBE BID 07/16/17 FLUoxetine [Fluoxetine Liquid] 10 mg TUBE DAILY 07/16/17 Acetaminophen [Tylenol 650/20.3ML 650 mg TUBE Q4H PRN udcup 07/19/17 Oral Liq (*)] Medical Decision Making Differential Diagnosis: This is a 27-year-old female with history of neuro degenerative disorder, seizures who presents brought in by ambulance from [facility] with multiple seizures, with ongoing seizures in the ambulance with no lucid interval in between. This is concerning for status epilepticus. The patient has received Versed already. I will Keppra load her. I will check her Depakote levels. We will evaluate her with basic labs, including a UA and chest x-ray. Upon arrival, patient's saturations were low despite non-rebreather mask. These began to improve with time and she is able now to maintain a sat of about 95%. Chest x-ray was performed and shows left-sided low lung volumes likely due to hiatal hernia. It is very difficult to say if there is an aspiration pneumonia present. Because of this, I will give her antibiotics. Other labs are unremarkable. UA is pending. Because of concern for status epilepticus and poor baseline mental status patient will need continuous EEG monitoring. It does not seem that she is currently seizing now and seems to be waking up from her postictal status. I have discussed the case with the hospitalist Dr. Argueta who recommends transfer to [facility] where this is available. I consulted with the neurologist at [facility] Dr. Calles, he accepts the patient for transfer. I have completed the EMTALA form. The patient should be transported via critical care. Labs have returned and are unremarkable, including UA. The cause of her seizures currently are unclear. She is now more awake and is on 4 L nasal cannula and is breathing more comfortably. Critical Care Time: CRITICAL CARE Critical care time spent by me, Dr. Rueda, exclusively with this patient was 60 minutes, exclusive of PA time and exclusive of procedures. The organ system at risk was neuro and I gave IV fluids, antiepileptics, breathing treatments, transfer to another hospital to prevent worsening of the patients condition. - Data Points Laboratory Results: Laboratory Results 11/06/17 06:03 11/06/17 06:03 Medications Given: Discontinued Medications Albuterol/Ipratropium (Duoneb) 3 ml IH EDNOW ONE Stop: 11/06/17 06:46 Last Admin: 11/06/17 06:45 Dose: 3 ml Sodium Chloride (Ns) 1,000 mls @ 0 mls/hr IV ONCE ONE; Wide Open PRN Reason: Protocol Stop: 11/06/17 06:01 Last Admin: 11/06/17 06:18 Dose: 1,000 mls Levetiracetam (Keppra (Premix)) 100 mls @ 400 mls/hr IV EDNOW ONE Stop: 11/06/17 06:15 Last Admin: 11/06/17 06:16 Dose: 100 mls Piperacillin/Tazobactam/Dextrose (Zosyn 3.375 Gm (Premix)) 50 mls @ 100 mls/hr IV EDNOW ONE PRN Reason: Protocol Stop: 11/06/17 07:28 Last Admin: 11/06/17 07:18 Dose: 50 mls Sodium Chloride (Ns) 1,000 mls @ 0 mls/hr IV ONCE ONE; Wide Open PRN Reason: Protocol Stop: 11/06/17 07:12 Last Admin: 11/06/17 07:12 Dose: 1,000 mls Departure - Departure Disposition: Acute Care Hospital [facility] Clinical Impression: Ricco's disease, Seizure disorder, Status epilepticus Condition: Fair Referrals: KASSIE GONZALEZ [Primary Care Provider] - As per Instructions
[2017-11-06 06:15] LABS: PLATELET COUNT 146 10^3/uL (150-400)
[2017-11-06] MEDS ORDERED: IPRATROPIUM/ALBUTEROL 3 ML DEYVIAL IH ONE (06:45)
[2017-11-06] MEDS ORDERED: PIPERACILLIN/TAZO 3.375 GM/DEX 50 ML IV ONE (06:59)
[2017-11-06 09:49] VITALS: BP 92/58
== END 2017-11-06 09:50 | disposition short-term general hospital (02) ==
LOC: EDUNIT#
PROC: 0T9B70Z Drainage of Bladder with Drainage Device, Via Natural or Artificial Opening (ICD-10-PCS; principal; 2017-11-06)
DX: G40.901 Epilepsy, unspecified, not intractable, with status epilepticus (principal); E75.4 Neuronal ceroid lipofuscinosis; E86.9 Volume depletion, unspecified
CPT/HCPCS: 96365; J1953; J2543

== ENCOUNTER 2018-09-18 20:24 | Emergency (ER) | payer MEDICAID ==
--- NOTE | 2018-09-18 20:33 | EDPHY ---
H & P Time Seen by Provider: 09/18/18 20:32 HPI/ROS: CHIEF COMPLAINT: Dislodged feeding tube HISTORY OF PRESENT ILLNESS: The patient is a 28-year-old female care home with a feeding tube with a chronic progressive neurodegenerative disease as well as seizures. Her feeding tube was accidentally dislodged the care home. No other complaints. No bleeding. No fevers or infections. Baseline mental status. Severity: Mild Modifying factors: None REVIEW OF SYSTEMS: Constitutional: denies: chills, fever, recent illness, recent injury EENTM: denies: blurred vision, double vision, nose congestion Respiratory: denies: cough, shortness of breath Cardiac: denies: chest pain, irregular heart rate, lightheadedness, palpitations Gastrointestinal/Abdominal: See HPI Genitourinary: denies: dysuria, frequency, hematuria, pain Musculoskeletal: denies: joint pain, muscle pain Skin: denies: lesions, rash, jaundice, bruising Neurological: denies: headache, numbness, paresthesia, tingling, dizziness, weakness Hematologic/Lymphatic: denies: blood clots, easy bleeding, easy bruising Immunologic/allergic: denies: HIV/AIDS, transplant 10 systems reviewed and negative except as noted EXAM: GENERAL: Well-appearing, well-nourished and in no acute distress. HEAD: Atraumatic, normocephalic. EYES: Pupils equal round and reactive to light, extraocular movements intact, sclera anicteric, conjunctiva are normal. ENT: TMs normal, nares patent, oropharynx clear without exudates. Moist mucous membranes. NECK: Normal range of motion, supple without lymphadenopathy or JVD. LUNGS: Breath sounds clear to auscultation bilaterally and equal. No wheezes rales or rhonchi. HEART: Regular rate and rhythm without murmurs, rubs or gallops. ABDOMEN: Stoma clean and dry. New feeding tube in place. Soft, nontender, normoactive bowel sounds. No guarding, no rebound. No masses appreciated. BACK: No CVA tenderness, no spinal tenderness, step-offs or deformities EXTREMITIES: Normal range of motion, no pitting or edema. No clubbing or cyanosis. NEUROLOGICAL: Cranial nerves II through XII grossly intact. Normal speech, normal gait. 5/5 strength, normal movement in all extremities, normal sensation , normal reflexes PSYCH: Normal mood, normal affect. SKIN: Warm, dry, normal turgor, no visible rashes or lesions. Source: Patient, EMS Exam Limitations: No limitations - Medical/Surgical History Hx Asthma: No Hx Chronic Respiratory Disease: No Hx Diabetes: No Hx Cardiac Disease: No Hx Renal Disease: No Hx Cirrhosis: No Hx Alcoholism: No Hx HIV/AIDS: No Hx Splenectomy or Spleen Trauma: No Other PMH: bradycardia, retinitis pigmentosa, epilepsy with progressive neurodegenerative disorder, failure to thrive, blind (sees shadows only), anorexia with severe malnutrition and PEG tube, closed fx pelvis, severe depression without psychotic features - Family History Significant Family History: No pertinent family hx - Social History Smoking Status: Never smoked Alcohol Use: None Constitutional: Initial Vital Signs Temperature (C) 36.2 C 09/18/18 20:25 Heart Rate 71 09/18/18 20:25 Blood Pressure 96/54 L 09/18/18 20:25 O2 Sat (%) 95 09/18/18 20:25 O2 Delivery Mode Room Air Allergies/Adverse Reactions: lorazepam Allergy (Verified 09/20/18 22:31) Other-Enter Comments cantaloupe Allergy (Uncoded 09/20/18 22:31) Home Medications: Medication Instructions Recorded Acetaminophen [Tylenol ES 500 mg 1,000 mg TUBE Q8HRS PRN 01/02/17 (*)] Calcium Carbonate [Tums 500MG (*)] 500 mg TUBE BID 01/02/17 Divalproex [Depakote Sprinkle 125 625 mg TUBE BID 01/02/17 MG (*)] Ipratropium/Albuterol [Duoneb (*)] 3 ml NEB Q4HRS PRN 01/02/17 Midazolam HCl/Pf [Midazolam HCl 5 1 ml EACHNARE DAILY PRN 01/02/17 mg/ml Vial] OLANZapine [Zyprexa] 10 mg TUBE DAILY 01/02/17 Zonisamide [Zonegran 100MG (*)] 100 mg TUBE BID 01/02/17 levOCARNitine (WITH SUGAR) 2 ml TUBE BID 01/02/17 [Levocarnitine 1 G/10 ml Soln] Ergocalciferol [Vitamin D2 (*)] 50,000 unit TUBE SA 05/31/17 Lactobacil 2-S.thermo-Bifido 1 1 each TUBE DAILY 05/31/17 [Vsl#3 Packet] Lipase 12,000/Amylase/Protease 1 cap TUBE TID 05/31/17 [Creon 12 (*)] Nystatin Powder [Mycostatin Powder] 1 tiffanie TP TID 05/31/17 Pregabalin [Lyrica 50mg (*)] 100 mg TUBE BID 05/31/17 lamoTRIgine [LamICTAL 100 MG (*)] 200 mg TUBE BID 05/31/17 Docusate Sodium [Docu Liquid] 100 mg TUBE BID 07/16/17 FLUoxetine [Fluoxetine Liquid] 10 mg TUBE DAILY 07/16/17 Acetaminophen [Tylenol 650/20.3ML 650 mg TUBE Q4H PRN udcup 07/19/17 Oral Liq (*)] Medical Decision Making ED Course/Re-evaluation: Nursing staff was able to replace the G-tube immediately on arrival. It is well secured. No bleeding. No leaking. Gastric contents easily aspirated. Will discharge back to the care home. Differential Diagnosis: Partial list of the Differential diagnosis considered include but were not limited to; feeding tube dislodgement, bleeding and although unlikely based on the history and physical exam, I also considered infection, false track. Departure - Departure Disposition: Home, Routine, Self-Care Clinical Impression: Gastrostomy tube dysfunction Condition: Fair Instructions: Percutaneous Endoscopic Gastrostomy Insertion (DC) Referrals: KASSIE GONZALEZ [Primary Care Provider] - As per Instructions
[2018-09-18 21:57] VITALS: BP 90/56
== END 2018-09-18 21:57 | disposition home or self-care (01) ==
LOC: EDUNIT#
PROC: 0DH63UZ Insertion of Feeding Device into Stomach, Percutaneous Approach (ICD-10-PCS; principal; 2018-09-18)
DX: K94.23 Gastrostomy malfunction (principal); E43 Unspecified severe protein-calorie malnutrition; R63.0 Anorexia; H54.8 Legal blindness, as defined in USA; G40.909 Epilepsy, unspecified, not intractable, without status epilepticus

== ENCOUNTER 2018-09-20 22:07 | Emergency (ER) | payer MEDICAID ==
--- NOTE | 2018-09-20 22:36 | EDPHY ---
H & P Time Seen by Provider: 09/20/18 22:32 HPI/ROS: HPI CHIEF COMPLAINT: Problems with feeding tube HISTORY OF PRESENT ILLNESS: Patient is a 28-year-old female she resides at [facility], presents emergency room after her feeding to be came damaged. It is unclear exactly has happened however the small aspect tube was ripped off. She sent here for jeep replaced. She was just here on September 18 and had her feeding tube replaced. Denies any complaints. 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 Family History: Noncontributory ROS REVIEW OF SYSTEMS: 10 Systems were reviewed and negative with the exception of the elements mentioned in the history of present illness. Exam Constitutional nontoxic no acute distress. triage nursing summary reviewed, vital signs reviewed, awake/alert. Vital signs stable. Eyes normal conjunctivae and sclera, EOMI, PERRLA. HENT normal inspection, atraumatic, moist mucus membranes, no epistaxis, neck supple/ no meningismus, no raccoon eyes. Respiratory clear to auscultation bilaterally, normal breath sounds, no respiratory distress, no wheezing. Cardiovascular rate normal, regular rhythm, no murmur, no edema, distal pulses normal. Gastrointestinal patient in place, however the peg tube has the proximal aspect missing. soft, non-tender, no rebound, no guarding, normal bowel sounds, no distension, no pulsatile mass. Genitourinary no CVA tenderness. Musculoskeletal no midline vertebral tenderness, full range of motion, no calf swelling, no tenderness of extremities, no meningismus, good pulses, neurovascularly intact. Skin pink, warm, & dry, no rash, skin atraumatic. Neurologic at her neurological baseline. Psychiatric normal mood/affect. Heme/Lymph/Immune no lymphadenopathy. Differential Diagnosis: Includes but is not limited to in a particular order peg tube replacement, peg tube malfunction. Medical Decision Making: Plan for this patient peg tube replacement. Re-evaluation: The head was able to remove the patient's 20 English PEG tube. And replaced with a new PEG tube. The balloon was sufficiently self lead. A Gastrografin view KUB will be used to confirm placement however there was good gastric contents returned. KUB reviewed with Gastrografin the PEG tube appears to be in appropriate position. Gastrografin is seen in the stomach rugae. Source: Patient, EMS - Medical/Surgical History Hx Asthma: No Hx Chronic Respiratory Disease: No Hx Diabetes: No Hx Cardiac Disease: No Hx Renal Disease: No Hx Cirrhosis: No Hx Alcoholism: No Hx HIV/AIDS: No Hx Splenectomy or Spleen Trauma: No Other PMH: bradycardia, retinitis pigmentosa, epilepsy with progressive neurodegenerative disorder, failure to thrive, blind (sees shadows only), anorexia with severe malnutrition and PEG tube, closed fx pelvis, severe depression without psychotic features - Social History Smoking Status: Never smoked Constitutional: Initial Vital Signs Temperature (C) 36.7 C 09/20/18 22:31 Heart Rate 61 09/20/18 22:31 Respiratory Rate 18 09/20/18 22:31 Blood Pressure 101/60 09/20/18 22:31 O2 Sat (%) 95 09/20/18 22:31 O2 Delivery Mode Room Air Allergies/Adverse Reactions: lorazepam Allergy (Verified 09/20/18 22:31) Other-Enter Comments cantaloupe Allergy (Uncoded 09/20/18 22:31) Home Medications: Medication Instructions Recorded Acetaminophen [Tylenol ES 500 mg 1,000 mg TUBE Q8HRS PRN 01/02/17 (*)] Calcium Carbonate [Tums 500MG (*)] 500 mg TUBE BID 01/02/17 Divalproex [Depakote Sprinkle 125 625 mg TUBE BID 01/02/17 MG (*)] Ipratropium/Albuterol [Duoneb (*)] 3 ml NEB Q4HRS PRN 01/02/17 Midazolam HCl/Pf [Midazolam HCl 5 1 ml EACHNARE DAILY PRN 01/02/17 mg/ml Vial] OLANZapine [Zyprexa] 10 mg TUBE DAILY 01/02/17 Zonisamide [Zonegran 100MG (*)] 100 mg TUBE BID 01/02/17 levOCARNitine (WITH SUGAR) 2 ml TUBE BID 01/02/17 [Levocarnitine 1 G/10 ml Soln] Ergocalciferol [Vitamin D2 (*)] 50,000 unit TUBE SA 05/31/17 Lactobacil 2-S.thermo-Bifido 1 1 each TUBE DAILY 05/31/17 [Vsl#3 Packet] Lipase 12,000/Amylase/Protease 1 cap TUBE TID 05/31/17 [Creon 12 (*)] Nystatin Powder [Mycostatin Powder] 1 tiffanie TP TID 05/31/17 Pregabalin [Lyrica 50mg (*)] 100 mg TUBE BID 05/31/17 lamoTRIgine [LamICTAL 100 MG (*)] 200 mg TUBE BID 05/31/17 Docusate Sodium [Docu Liquid] 100 mg TUBE BID 07/16/17 FLUoxetine [Fluoxetine Liquid] 10 mg TUBE DAILY 07/16/17 Acetaminophen [Tylenol 650/20.3ML 650 mg TUBE Q4H PRN udcup 07/19/17 Oral Liq (*)] Departure - Departure Disposition: Home, Routine, Self-Care Clinical Impression: PEG tube malfunction Condition: Good Instructions: How to Use and Care for Your PEG Tube (ED) Referrals: KASSIE GONZALEZ [Primary Care Provider] - As per Instructions
[2018-09-21 00:40] VITALS: BP 105/65
== END 2018-09-21 01:02 | disposition home or self-care (01) ==
LOC: EDUNIT#
PROC: 0DH67UZ Insertion of Feeding Device into Stomach, Via Natural or Artificial Opening (ICD-10-PCS; principal; 2018-09-20)
DX: K94.23 Gastrostomy malfunction (principal)

== ENCOUNTER 2018-09-29 21:51 | Emergency (ER) | payer MEDICAID ==
--- NOTE | 2018-09-29 22:00 | EDPHY ---
H & P Stated Complaint: pulled out PEG tube Time Seen by Provider: 09/29/18 22:00 HPI/ROS: HPI CHIEF COMPLAINT: Peg tube malfunction HISTORY OF PRESENT ILLNESS: This patient is a 28-year-old female, she arrives from [place] where she lives. At some point she removed her PEG tube. She is here to have her PEG tube replaced. Denies any other complaints. Vital signs are stable. Past Medical History: Chronic progressive neurological disorder, seizures. Past Surgical History: Peg tube Social History: Denies drugs alcohol tobacco. Resides at a living facility. Family History: Noncontributory ROS REVIEW OF SYSTEMS: 10 Systems were reviewed and negative with the exception of the elements mentioned in the history of present illness. Exam Constitutional triage nursing summary reviewed, vital signs reviewed, awake/ alert. Eyes normal conjunctivae and sclera, EOMI, PERRLA. HENT normal inspection, atraumatic, moist mucus membranes, no epistaxis, neck supple/ no meningismus, no raccoon eyes. Respiratory clear to auscultation bilaterally, normal breath sounds, no respiratory distress, no wheezing. Cardiovascular rate normal, regular rhythm, no murmur, no edema, distal pulses normal. Gastrointestinal PEG tube site mild erythema no significant swelling or infection soft, non-tender, no rebound, no guarding, normal bowel sounds, no distension, no pulsatile mass. Genitourinary no CVA tenderness. Musculoskeletal no midline vertebral tenderness, full range of motion, no calf swelling, no tenderness of extremities, no meningismus, good pulses, neurovascularly intact. Skin pink, warm, & dry, no rash, skin atraumatic. Neurologic at neurological baseline. awake, alert moves all 4 extremities equally Psychiatric normal mood/affect. Heme/Lymph/Immune no lymphadenopathy. Differential Diagnosis: Includes but is not peg tube malfunction, need for new peg tube placement. Medical Decision Making: Plan for this patient she had a 20 Gren[place] placed last time. Re-evaluation: 2219: I Was able to place a 20 Gren[place] PEG tube into her PEG tube site. She tolerated this very well. Gastric contents was aspirated. PEG tube placed will be confirm KUB Gastrografin. KUB reviewed. Good placement of PEG tube. Source: Patient - Personal History Current Tetanus/Diphtheria Vaccine: Yes Current Tetanus Diphtheria and Acellular Pertussis (TDAP): Yes - Medical/Surgical History Hx Asthma: No Hx Chronic Respiratory Disease: No Hx Diabetes: No Hx Cardiac Disease: No Hx Renal Disease: No Hx Cirrhosis: No Hx Alcoholism: No Hx HIV/AIDS: No Hx Splenectomy or Spleen Trauma: No Other PMH: bradycardia, retinitis pigmentosa, epilepsy with progressive neurodegenerative disorder, failure to thrive, blind (sees shadows only), anorexia with severe malnutrition and PEG tube, closed fx pelvis, severe depression without psychotic features - Social History Smoking Status: Never smoked Constitutional: Initial Vital Signs Temperature (C) 36.5 C 09/29/18 21:57 Heart Rate 68 09/29/18 21:57 Respiratory Rate 16 09/29/18 21:57 Blood Pressure 114/71 09/29/18 21:57 O2 Sat (%) 94 09/29/18 21:57 O2 Delivery Mode Room Air Allergies/Adverse Reactions: lorazepam Allergy (Verified 09/29/18 21:57) Other-Enter Comments cantaloupe Allergy (Uncoded 09/29/18 21:57) Home Medications: Medication Instructions Recorded Acetaminophen [Tylenol ES 500 mg 1,000 mg TUBE Q8HRS PRN 01/02/17 (*)] Calcium Carbonate [Tums 500MG (*)] 500 mg TUBE BID 01/02/17 Divalproex [Depakote Sprinkle 125 625 mg TUBE BID 01/02/17 MG (*)] Ipratropium/Albuterol [Duoneb (*)] 3 ml NEB Q4HRS PRN 01/02/17 Midazolam HCl/Pf [Midazolam HCl 5 1 ml EACHNARE DAILY PRN 01/02/17 mg/ml Vial] OLANZapine [Zyprexa] 10 mg TUBE DAILY 01/02/17 Zonisamide [Zonegran 100MG (*)] 100 mg TUBE BID 01/02/17 levOCARNitine (WITH SUGAR) 2 ml TUBE BID 01/02/17 [Levocarnitine 1 G/10 ml Soln] Ergocalciferol [Vitamin D2 (*)] 50,000 unit TUBE SA 05/31/17 Lactobacil 2-S.thermo-Bifido 1 1 each TUBE DAILY 05/31/17 [Vsl#3 Packet] Lipase 12,000/Amylase/Protease 1 cap TUBE TID 05/31/17 [Creon 12 (*)] Nystatin Powder [Mycostatin Powder] 1 tiffanie TP TID 05/31/17 Pregabalin [Lyrica 50mg (*)] 100 mg TUBE BID 05/31/17 lamoTRIgine [LamICTAL 100 MG (*)] 200 mg TUBE BID 05/31/17 Docusate Sodium [Docu Liquid] 100 mg TUBE BID 07/16/17 FLUoxetine [Fluoxetine Liquid] 10 mg TUBE DAILY 07/16/17 Acetaminophen [Tylenol 650/20.3ML 650 mg TUBE Q4H PRN udcup 07/19/17 Oral Liq (*)] Medical Decision Making - Diagnostics Imaging Results: Imaging Impressions Abdomen X-Ray 09/29/18 22:20 Impression: 1. PEG tube appears to be within the stomach. Departure - Departure Disposition: Home, Routine, Self-Care Clinical Impression: PEG tube malfunction Condition: Good Instructions: How to Use and Care for Your PEG Tube (ED) Referrals: KASSIE GONZALEZ [Primary Care Provider] - As per Instructions
[2018-09-29 23:39] VITALS: BP 117/74
== END 2018-09-29 23:37 | disposition home or self-care (01) ==
LOC: EDUNIT#
DX: K94.23 Gastrostomy malfunction (principal)

== ENCOUNTER 2018-09-30 14:38 | Emergency (ER) | payer MEDICAID ==
--- NOTE | 2018-09-30 15:23 | EDPHY ---
H & P Time Seen by Provider: 09/30/18 15:13 HPI/ROS: CHIEF COMPLAINT: Food around the feeding tube HISTORY OF PRESENT ILLNESS: Patient had visits here on September 18 September 20 and September 29 for feeding tube issues. Most recently 1 was replaced yesterday and Gastrografin study showed good position. Arrives here with food debris around the opening. REVIEW OF SYSTEMS: No vomiting PAST MEDICAL HISTORY: Includes schizophrenia, epilepsy, dysphagia with feeding tube, pacemaker, degenerative nervous system disorder Social history: Resident at [facility] Appearance: Patient is abdomen is soft and nontender. G-tube site is clean dry and intact without evidence of surrounding redness or tenderness or skin rash. Tube is in place. Emergency Department course/MDM: The tube is aspirated and flushed cleanly with gastric contents. There is no active extravasation of stomach contents around the tube. The bulb was tested and has between 7 and 10 mL of water in it. The gastric tube appears to be functioning correctly here. Smoking Status: Never smoked Constitutional: Initial Vital Signs Temperature (C) 36.1 C 09/30/18 14:44 Heart Rate 66 09/30/18 14:44 Respiratory Rate 16 09/30/18 14:44 Blood Pressure 103/69 09/30/18 14:44 O2 Sat (%) 93 09/30/18 14:44 O2 Delivery Mode Room Air Allergies/Adverse Reactions: lorazepam Allergy (Verified 09/29/18 21:57) Other-Enter Comments cantaloupe Allergy (Uncoded 09/29/18 21:57) Home Medications: Medication Instructions Recorded Acetaminophen [Tylenol ES 500 mg 1,000 mg TUBE Q8HRS PRN 01/02/17 (*)] Calcium Carbonate [Tums 500MG (*)] 500 mg TUBE BID 01/02/17 Divalproex [Depakote Sprinkle 125 625 mg TUBE BID 01/02/17 MG (*)] Ipratropium/Albuterol [Duoneb (*)] 3 ml NEB Q4HRS PRN 01/02/17 Midazolam HCl/Pf [Midazolam HCl 5 1 ml EACHNARE DAILY PRN 01/02/17 mg/ml Vial] OLANZapine [Zyprexa] 10 mg TUBE DAILY 01/02/17 Zonisamide [Zonegran 100MG (*)] 100 mg TUBE BID 01/02/17 levOCARNitine (WITH SUGAR) 2 ml TUBE BID 01/02/17 [Levocarnitine 1 G/10 ml Soln] Ergocalciferol [Vitamin D2 (*)] 50,000 unit TUBE SA 05/31/17 Lactobacil 2-S.thermo-Bifido 1 1 each TUBE DAILY 05/31/17 [Vsl#3 Packet] Lipase 12,000/Amylase/Protease 1 cap TUBE TID 05/31/17 [Creon 12 (*)] Nystatin Powder [Mycostatin Powder] 1 tiffanie TP TID 05/31/17 Pregabalin [Lyrica 50mg (*)] 100 mg TUBE BID 05/31/17 lamoTRIgine [LamICTAL 100 MG (*)] 200 mg TUBE BID 05/31/17 Docusate Sodium [Docu Liquid] 100 mg TUBE BID 07/16/17 FLUoxetine [Fluoxetine Liquid] 10 mg TUBE DAILY 07/16/17 Acetaminophen [Tylenol 650/20.3ML 650 mg TUBE Q4H PRN udcup 07/19/17 Oral Liq (*)] MDM/Departure - Depart Disposition: Home, Routine, Self-Care Clinical Impression: Gastrostomy tube dysfunction Condition: Good Instructions: How to Use and Care for Your PEG Tube (ED) Referrals: KASSIE GONZALEZ [Non Staff Provider ()] - As per Instructions
[2018-09-30 15:49] VITALS: BP 103/58
== END 2018-09-30 15:50 | disposition home or self-care (01) ==
LOC: EDUNIT#
DX: K94.29 Other complications of gastrostomy (principal); G40.909 Epilepsy, unspecified, not intractable, without status epilepticus

== ENCOUNTER 2019-01-04 18:44 | Emergency (ER) | payer MEDICAID | END 2019-01-04 21:06 | disposition home or self-care (01) ==